=== PATIENT | female | born 1935 | race Caucasian/White ===

== ENCOUNTER → 2017-04-23 | Outpatient (CLI) | payer MEDICARE, MEDICAID ==
--- NOTE | 2017-04-23 12:50 | RADIOLOGY REPORT (SQ) ---
EXAM DESCRIPTION: CT ABD/PELVIS WITH IV ONLY COMPLETED DATE/TIME: 04/23/2017 12:12 pm REASON FOR STUDY: LOWER ABDOMINAL PAIN R10.30 LOWER ABDOMINAL PAIN, UNSPECIFIED COMPARISON: None. TECHNIQUE: CT scan of the abdomen and pelvis performed using helical scanning technique with dynamic intravenous contrast injection. No oral contrast. Images reviewed with lung, soft tissue, and bone windows. Reconstructed coronal and sagittal MPR images reviewed. Delayed images for evaluation of the urinary system also acquired. All images stored on PACS. All CT scanners at this facility use dose modulation, iterative reconstruction, and/or weight based d osing when appropriate to reduce radiation dose to as low as reasonably achievable (ALARA). [facility]: Dose Right [facility]: CareDose [facility]: Dose Right [facility]: Teradose 4D [facility]: [employer] CONTRAST TYPE AND DOSE: 78mL Isovue 370- low osmolar. RENAL FUNCTION: Creatinine 1.4. RADIATION DOSE: 14.31mGy. LIMITATIONS: None. FINDINGS: LOWER CHEST: No significant findings. No nodules or infiltrates. LIVER: Normal size. No masses or dilated ducts. SPLEEN: Normal size. No focal lesions. PANCREAS: No masses. No significant calcifications. No adjacent inflammation or peripancreatic fluid collections. Pancreatic duct not dilated. GALLBLADDER: Gallstones. No inflammatory changes to suggest cholecystitis. ADRENAL GLANDS: No significant masses or asymmetry. RIGHT KIDNEY AND URETER: No solid masses. No significant calcifications. No hydronephrosis or hyd roureter. LEFT KIDNEY AND URETER: No solid masses. No significant calcifications. No hydronephrosis or hydr oureter. AORTA AND VESSELS: Ectatic aorta with a saccular aneurysm in in the mid aorta, measuring 3.9 cm, and saccular aneurysm in the distal aorta, measuring 4.3 cm. Mural thrombus distally. No dissection. Nagi al arteries, SMA, celiac without stenosis. RETROPERITONEUM: No retroperitoneal adenopathy, hemorrhage or masses. BOWEL AND PERITONEAL CAVITY: Colonic diverticulosis. No masses or inflammatory changes. No free flui d or peritoneal masses. APPENDIX: Surgically absent. PELVIS: No mass or free fluid. Normal bladder. ABDOMINAL WALL: Surgical mesh. No hernias. BONES: No significant or acute findings. Degenerative changes in the spine. OTHER: No other significant finding. IMPRESSION: 1. GALLSTONES. NO ACUTE FINDINGS. 2. COLONIC DIVERTICULOSIS. NO CT EVIDENCE OF ACUTE DIVERTICULITIS. 3. ABDOMINAL AORTIC ANEURYSMS DESCRIBED 4. OTHER CHRONIC FINDINGS ABOVE. NO OTHER SIGNIFICANT OR ACUTE FINDING IN THE ABDOMEN OR PELVIS O N CT SCAN WITH IV CONTRAST. TECHNICAL DOCUMENTATION: JOB ID: [id number] Quality ID # [id number]: Final reports with documentation of one or more dose reduction techniques (e.g., Au tomated exposure control, adjustment of the mA and/or kV according to patient size, use of iterative reconstruction technique) 2010 [employer]- All Rights Reserved
== END ==
LOC: RAD 11:15
PROVIDERS: ATTEND Physician Assistant
DX: R10.30 Lower abdominal pain, unspecified (principal); R31.0 Gross hematuria; K80.80 Other cholelithiasis without obstruction; K57.30 Diverticulosis of large intestine without perforation or abscess without bleeding; I71.4 Abdominal aortic aneurysm, without rupture
CPT/HCPCS: 74177; 82565

== ENCOUNTER → 2018-03-23 | Outpatient (CLI) | payer MEDICARE, MEDICAID ==
[2018-03-23 17:09] LABS: ABSOLUTE EOSINOPHILS # (AUTO) 0.2 10^3/uL (0.0-0.6); ABSOLUTE LYMPHOCYTES (AUTO) 1.2 10^3/uL (0.5-4.7); ABSOLUTE MONOCYTES (AUTO) 0.3 10^3/uL (0.1-1.4); ABSOLUTE NEUT (AUTO) 3.8 10^3/uL (1.7-8.2); BASOPHILS % (AUTO) 0.9 % (0-2); EOSINOPHILS % (AUTO) 3.8 % (0-6); HEMATOCRIT 39.3 % (36.0-47.0); LYMPHOCYTES % (AUTO) 21.2 % (13-45); MEAN CORPUSCULAR HEMOGLOBIN 30.3 pg (27.0-33.4); MEAN CORPUSCULAR VOLUME 92 fl (80-97); MONOCYTES % (AUTO) 5.8 % (3-13); PLATELET COUNT 161 10^3/uL (150-450); RED BLOOD COUNT 4.28 10^6/uL (3.72-5.28); SEGMENTED NEUTROPHILS % (AUTO) 68.3 % (42-78); TOTAL CELLS COUNTED % (AUTO) 100 %; WHITE BLOOD COUNT 5.5 10^3/uL (4.0-10.5)
[2018-03-23 17:26] LABS: ALANINE AMINOTRANSFERASE 32 U/L (9-52); ALBUMIN 3.7 g/dL (3.5-5.0); ALKALINE PHOSPHATASE 85 U/L (38-126); ANION GAP 10 (5-19); ASPARTATE AMINO TRANSFERASE 33 U/L (14-36); BILIRUBIN,DIRECT 0.3 mg/dL (0.0-0.4); BILIRUBIN,TOTAL 0.4 mg/dL (0.2-1.3); BLOOD UREA NITROGEN 20 mg/dL (7-20); CALCIUM 9.4 mg/dL (8.4-10.2); CARBON DIOXIDE 30 mmol/L (22-30); CHLORIDE 102 mmol/L (98-107); GLUCOSE 96 mg/dL (75-110); LIPASE 240.8 U/L (23-300); POTASSIUM 5.1 mmol/L (3.6-5.0); SODIUM 142.2 mmol/L (137-145)
== END ==
LOC: LAB 16:39
PROVIDERS: ATTEND Physician Assistant
DX: R10.11 Right upper quadrant pain (principal); E03.9 Hypothyroidism, unspecified
CPT/HCPCS: 36415; 80053; 83690; 84443; 85025

== ENCOUNTER → 2018-03-23 | Outpatient (CLI) | payer MEDICARE, MEDICAID ==
--- NOTE | 2018-03-23 19:38 | RADIOLOGY REPORT (SQ) ---
EXAM DESCRIPTION: CT ABD/PELVIS WITH IV ORAL COMPLETED DATE/TIME: 03/23/2018 7:18 pm REASON FOR STUDY: R10.11 RIGHT UPPER QUADRANT PAIN K59.00 CONSTIPATION, UNSPECIFIED R10.11 RIGHT UP PER QUADRANT PAIN K59.00 CONSTIPATION, UNSPECIFIED COMPARISON: 2016 TECHNIQUE: CT scan of the abdomen and pelvis performed using helical scanning technique with dynamic intravenous contrast injection. With oral contrast. Images reviewed with lung, soft tissue, and bon e windows. Reconstructed coronal and sagittal MPR images reviewed. Delayed images for evaluation of t he urinary system also acquired. All images stored on PACS. All CT scanners at this facility use dose modulation, iterative reconstruction, and/or weight based d osing when appropriate to reduce radiation dose to as low as reasonably achievable (ALARA). [facility]: Dose Right [facility]: CareDose [facility]: Dose Right [facility]: Teradose 4D [facility]: Accion CONTRAST TYPE AND DOSE: contrast/concentration: Isovue 370.00 mg/ml; Total Contrast Delivered: 89.0 ml; Total Saline Delivered: 50.0 ml RENAL FUNCTION: Not recorded RADIATION DOSE: CT Rad equipment meets quality standard of care and radiation dose reduction techniq ues were employed. CTDIvol: 8.0 - 11.0 mGy. DLP: 1019 mGy-cm.. LIMITATIONS: None. FINDINGS: LOWER CHEST: 2 mm pulmonary nodule left base unchanged. LIVER: Normal size. No masses. No dilated ducts. SPLEEN: Normal size. No focal lesions. PANCREAS: No masses. No significant calcifications. No adjacent inflammation or peripancreatic fluid collections. Pancreatic duct not dilated. GALLBLADDER: Extensive gallstones. No pericholecystic fluid. ADRENAL GLANDS: No significant masses or asymmetry. RIGHT KIDNEY AND URETER: No solid masses. No significant calcifications. No hydronephrosis or hyd roureter. LEFT KIDNEY AND URETER: No solid masses. No significant calcifications. No hydronephrosis or hydr oureter. AORTA AND VESSELS: Extensive aortic ectasia with multi level aneurysms. There is a 2 part aneurysm b elow the renal arteries. The upper aneurysm now measures 4.1 x 4.4 cm which is slightly larger than previous. The lower part of the aneurysm with mural thrombus is stable. RETROPERITONEUM: No retroperitoneal adenopathy, hemorrhage or masses. BOWEL AND PERITONEAL CAVITY: No masses or inflammatory changes. No free fluid or peritoneal masses. Diverticulosis. No diverticulitis. APPENDIX: Not visualized. PELVIS: No mass. No free fluid. Normal bladder. ABDOMINAL WALL: No masses. No hernias. BONES: No significant or acute findings. OTHER: No other significant finding. 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 The upper part of this aneurysm has increased in size slightly since the previous study. No evidenc e for rupture. The lower portion aneurysm contains mural thrombus. Extensive gallstones. Diverticulosis without diverticulitis. TECHNICAL DOCUMENTATION: JOB ID: [id number] Quality ID # [id number]: Final reports with documentation of one or more dose reduction techniques (e.g., Au tomated exposure control, adjustment of the mA and/or kV according to patient size, use of iterative reconstruction technique) 2010 [employer]- All Rights Reserved Reading location - IP/workstation name: [email or web address]
== END ==
LOC: RAD 16:30
PROVIDERS: ATTEND Physician Assistant
DX: R10.11 Right upper quadrant pain (principal); K59.00 Constipation, unspecified
CPT/HCPCS: 74177

== ENCOUNTER → 2018-04-02 | Outpatient (CLI) | payer MEDICARE, MEDICAID ==
--- NOTE | 2018-04-02 11:41 | RADIOLOGY REPORT (SQ) ---
EXAM DESCRIPTION: U/S ABDOMEN LIMITED W/O DOP COMPLETED DATE/TIME: 04/02/2018 10:26 am REASON FOR STUDY: CALCULUS OF GALLBLADDER W/O CHOLECYSTITIS W/O OBSTRUCTION K80.20 CALCULUS OF GALL BLADDER W/O CHOLECYSTITIS W/O OBSTRUC R10.11 RIGHT UPPER QUADRANT PAIN COMPARISON: None. TECHNIQUE: Dynamic and static grayscale images acquired of the abdomen and recorded on PACS. Additio nal selected color Doppler and spectral images recorded. LIMITATIONS: None. FINDINGS: PANCREAS: No masses. Visualized pancreatic duct normal caliber. LIVER: No masses. Echotexture normal. LIVER VASCULATURE: Normal directional flow of the main portal vein and hepatic veins. GALLBLADDER: Gallstone(s). No pericholecystic fluid. No wall thickening. ULTRASOUND-DETECTED RUBALCAVA'S SIGN: Negative. INTRAHEPATIC DUCTS AND COMMON DUCT: CBD and intrahepatic ducts normal caliber. No filling defects. INFERIOR VENA CAVA: Normal flow. AORTA: 4.4 cm distal aortic aneurysm. RIGHT KIDNEY: Normal size. Normal echogenicity. No solid or suspicious masses. No hydronephros is. No calcifications. PERITONEAL AND RIGHT PLEURAL SPACE: No ascites or effusions. OTHER: No other significant findings. IMPRESSION: 1. Cholelithiasis. No evidence of acute cholecystitis. 2. Known 4.4 cm aortic aneurysm. TECHNICAL DOCUMENTATION: JOB ID: [id number] [employer]- All Rights Reserved Reading location - IP/workstation name: [email or web address]
== END ==
LOC: RAD 08:44
PROVIDERS: ATTEND Physician Assistant
DX: K80.20 Calculus of gallbladder without cholecystitis without obstruction (principal); R10.11 Right upper quadrant pain
CPT/HCPCS: 76705

== ENCOUNTER 2018-04-17 13:45 | Emergency (ER) | payer MEDICARE, MEDICAID ==
[2018-04-17] MEDS ORDERED: BENZONATATE 100 MG CAPSULE PO ONE (14:29)
--- NOTE | 2018-04-17 14:34 | ER Document Report ---
HPI - HPI Pain Level: 4 Notes: Patient is an 82-year-old female with a history of hypercholesterolemia, abdominal aortic aneurysm, and upcoming cholecystectomy in 2 weeks who presents to the ED complaining of a dry semi-productive cough 2 days with nasal congestion/discharge and postnasal drip. Patient states that she does have some soreness in her throat intermittently as well. Patient states that she still is able to eat and drink, but does have a decreased p.o. intake. She still urinating normally and having normal bowel movements. Patient states that she was instructed here by Dr. Gupta to have an x-ray and some blood work done for possible pneumonia. She has no other concerns or complaints at this time. No other significant cardiopulmonary medical history. Denies any headache, fever, neck pain, sore throat, chest pain, palpitations, syncope, shortness of breath, wheeze, dyspnea, abdominal pain, nausea/vomiting/diarrhea, urinary retention, dysuria, hematuria, or rash. - ROS Systems Reviewed and Negative: Yes All other systems reviewed and negative - REPRODUCTIVE Reproductive: DENIES: : Past Medical History - Social History Smoking Status: Former Smoker Family History: Reviewed & Not Pertinent - Past Medical History Cardiac Medical History: Reports: Hx Coronary Artery Disease, Hx Heart Attack - 2000, Hx Hypercholesterolemia, Hx Hypertension Pulmonary Medical History: Reports: Hx COPD - physician indicated early signs of copd Denies: Hx Asthma, Hx Bronchitis, Hx Pneumonia Neurological Medical History: Denies: Hx Cerebrovascular Accident, Hx Seizures Musculoskeltal Medical History: Reports Hx Arthritis Psychiatric Medical History: Reports: Hx Depression Past Surgical History: Reports: Hx Hysterectomy. Denies: Hx Pacemaker - Immunizations Hx Diphtheria, Pertussis, Tetanus Vaccination: Yes Hx Pneumococcal Vaccination: 11/24/08 Vertical Provider Document - CONSTITUTIONAL Agree With Documented VS: Yes Notes: PHYSICAL EXAMINATION: GENERAL: Well-appearing, well-nourished and in no acute distress. A&Ox4. Answers questions appropriately. HEAD: Atraumatic, normocephalic. EYES: Pupils equal round and reactive to light, extraocular movements intact, sclera anicteric, conjunctiva are normal. ENT: EAC clear b/l. TM's intact b/l without erythema, fluid, or perforation. Nares patent and with clear discharge. oropharynx clear without exudates. No tonsilar hypertrophy or erythema. Moist mucous membranes. No airway compromise. No sinus tenderness. NECK: Normal range of motion, supple without lymphadenopathy. no rigidity/ meningismus. LUNGS: Breath sounds clear to auscultation bilaterally and equal. No obvious wheezes rales or rhonchi. HEART: Regular rate and rhythm without murmurs, rubs, gallops. ABDOMEN: Soft, nontender, nondistended abdomen. No guarding, no rebound. No masses appreciated. Normal bowel sounds present. No CVA tenderness bilaterally. Musculoskeletal: FROM to passive/active. Strength 5+/5. Extremities: No cyanosis, clubbing, or edema b/l. Peripheral pulses 2+. Capillary refill less than 3 seconds. NEUROLOGICAL: Normal speech, normal gait. PSYCH: Normal mood, normal affect. SKIN: Warm, Dry, normal turgor, no rashes or lesions noted. - INFECTION CONTROL TRAVEL OUTSIDE OF THE [place] IN LAST 30 DAYS: No Course - Re-evaluation Re-evalutation: 04/17/18 16:18 Patient is an afebrile, well-hydrated, 82-year-old female who presents to the ED with an acute URI, suspect viral. Vitals are acceptable. PE is otherwise unremarkable. Patient has no significant tachycardia, tachypnea, or hypoxia. She is ambulatory without any difficulties. She is tolerating p.o. without any difficulties. CBC, CMP, and chest x-ray were unremarkable for any acute pathology. Patient is nontoxic-appearing and would like to go home. No other labs or imaging warranted at this time based on H&P. Low suspicion for any sepsis, meningitis, severe dehydration, respiratory compromise, or other systemic emergent condition at this time. Pt is aware that condition can change from initial presentation and she needs to monitor symptoms closely and seek medical attention with any acute changes. I will send her home with a pocket rx of zithromax that she may begin in 2-3 days with ongoing/worsening symptoms as she does have a surgery coming up soon and family wants an antibiotic. Advised that this illness is most likely viral and the antibiotic may not change her illness. Daughter/pt in agreement. Recheck with your PCM in 2-3 days. Return to the ED with any worsening/concerning symptoms otherwise as reviewed discharge. - Vital Signs Vital signs: Temp Pulse Resp BP Pulse Ox 98.7 F 69 22 H 141/68 H 100 04/17/18 13:50 04/17/18 13:50 04/17/18 13:50 04/17/18 13:50 04/17/18 13:50 - Laboratory Result Diagrams: 04/17/18 15:13 04/17/18 15:13 Discharge - Discharge Clinical Impression: Acute URI Condition: Stable Disposition: HOME, SELF-CARE Instructions: Upper Respiratory Illness ([facility]) Additional Instructions: Maintain adequate fluid intake Take meds as directed tylenol/ibuprofen as needed over the counter cold medication as needed for symptoms Humidified air may help Wash your hands regularly Wear a mask when coughing F/u: with your PCM in 2-3 days for a recheck Return to the ED with any fever, worsening pain, chest pain, palpitations, syncope, worsening LANIER, neck pain/stiffness, shortness of breath, wheezing, drooling, trouble swallowing/breathing, abdominal pain, n/v/d, rash, or worsening/concerning symptoms otherwise. Prescriptions: Azithromycin [Zithromax 250 mg Tablet] 250 mg PO ASDIR PRN #6 tablet PRN Reason: Forms: Elevated Blood Pressure Referrals: JOSÉ MIGUEL GUPTA MD [Primary Care Provider] - 04/20/18
--- NOTE | 2018-04-17 15:12 | RADIOLOGY REPORT (SQ) ---
EXAM DESCRIPTION: CHEST 2 VIEWS COMPLETED DATE/TIME: 04/17/2018 2:58 pm REASON FOR STUDY: cough, productive COMPARISON: None. EXAM PARAMETERS: NUMBER OF VIEWS: two views TECHNIQUE: Digital Frontal and Lateral radiographic views of the chest acquired. RADIATION DOSE: NA LIMITATIONS: none FINDINGS: LUNGS AND PLEURA: Mild apical scarring. No infiltrates, masses or pneumothorax. No pleura l effusion. MEDIASTINUM AND HILAR STRUCTURES: No masses or contour abnormalities. HEART AND VASCULAR STRUCTURES: Heart upper limits of normal size. No evidence for failure. BONES: No acute findings. HARDWARE: The aortic endograft. OTHER: No other significant finding. IMPRESSION: MILD APICAL SCARRING. NO ACUTE RADIOGRAPHIC FINDING IN THE CHEST. TECHNICAL DOCUMENTATION: JOB ID: [id number] [employer]- All Rights Reserved Reading location - IP/workstation name: [email or web address]
[2018-04-17 15:30] LABS: MEAN CORPUSCULAR HEMOGLOBIN 30.7 pg (27.0-33.4); MEAN CORPUSCULAR HGB CONC 33.2 g/dL (32.0-36.0); MEAN CORPUSCULAR VOLUME 93 fl (80-97); PLATELET COUNT 123 10^3/uL (150-450); RED BLOOD COUNT 4.22 10^6/uL (3.72-5.28); RED CELL DISTRIBUTION WIDTH 13.6 % (11.5-14.0); WHITE BLOOD COUNT 9.6 10^3/uL (4.0-10.5)
[2018-04-17 15:44] LABS: ALANINE AMINOTRANSFERASE 21 U/L (9-52); ALBUMIN 3.5 g/dL (3.5-5.0); ALKALINE PHOSPHATASE 94 U/L (38-126); ANION GAP 8 (5-19); ASPARTATE AMINO TRANSFERASE 21 U/L (14-36); BILIRUBIN,DIRECT 0.3 mg/dL (0.0-0.4); BILIRUBIN,TOTAL 0.6 mg/dL (0.2-1.3); BLOOD UREA NITROGEN 14 mg/dL (7-20); CALCIUM 9.2 mg/dL (8.4-10.2); CARBON DIOXIDE 28 mmol/L (22-30); CHLORIDE 103 mmol/L (98-107); GLUCOSE 116 mg/dL (75-110); POTASSIUM 3.6 mmol/L (3.6-5.0); SODIUM 139.4 mmol/L (137-145); TOTAL PROTEIN 6.9 g/dL (6.3-8.2)
[2018-04-17 15:48] LABS: ABSOLUTE LYMPHOCYTES# (MANUAL) 0.5 10^3/uL (0.5-4.7); ABSOLUTE MONOCYTES # (MANUAL) 0.8 10^3/uL (0.1-1.4); ABSOLUTE NEUTROPHILS# (MANUAL) 8.3 10^3/uL (1.7-8.2); BASOPHILS % (MANUAL) 0 % (0-2); EOSINOPHILS % (MANUAL) 1 % (0-6); LYMPHOCYTES % (MANUAL) 5 % (13-45); MONOCYTES % (MANUAL) 8 % (3-13); SEGMENTED NEUTROPHILS % (MAN) 86 % (42-78); TOTAL CELLS COUNTED 100
[2018-04-17 15:49] LABS: PLATELET COMMENT DECREASED; TOXIC GRANULATION SLIGHT
[2018-04-17 16:35] VITALS: BP 161/78
== END 2018-04-17 16:36 | disposition home or self-care (01) ==
LOC: ER 13:45
DX: J06.9 Acute upper respiratory infection, unspecified (principal); R09.81 Nasal congestion; E78.00 Pure hypercholesterolemia, unspecified; I25.10 Atherosclerotic heart disease of native coronary artery without angina pectoris; I71.4 Abdominal aortic aneurysm, without rupture; I25.2 Old myocardial infarction
CPT/HCPCS: 99284; 36415; 85025; 80053; 71046; A9270

== ENCOUNTER 2018-04-21 19:14 | Inpatient (IN) | payer MEDICARE, MEDICAID ==
[2018-04-21] MEDS ORDERED: IPRATROPIUM/ALBUTEROL 0.5-2.5 MG/3 ML AMPUL NEB ONE (20:09)
[2018-04-21] MEDS ORDERED: NORMAL SALINE 500 ML IV ONE (20:23)
[2018-04-21 20:43] LABS: VENOUS BLOOD BASE EXCESS 2.2 mmol/L; VENOUS BLOOD HCO3 26.9 mmol/L (20-32); VENOUS BLOOD PH 7.42 (7.30-7.42)
--- NOTE | 2018-04-21 20:43 | RADIOLOGY REPORT (SQ) ---
EXAM DESCRIPTION: CHEST 2 VIEWS COMPLETED DATE/TIME: 04/21/2018 7:51 pm REASON FOR STUDY: cough fever COMPARISON: 04/17/2018 EXAM PARAMETERS: NUMBER OF VIEWS: two views TECHNIQUE: Digital Frontal and Lateral radiographic views of the chest acquired. RADIATION DOSE: NA LIMITATIONS: none FINDINGS: LUNGS AND PLEURA: No opacities, masses or pneumothorax. No pleural effusion. MEDIASTINUM AND HILAR STRUCTURES: No masses or contour abnormalities. HEART AND VASCULAR STRUCTURES: Heart normal size. No evidence for failure. BONES: No acute findings. HARDWARE: Aortic stent OTHER: No other significant finding. IMPRESSION: NO ACUTE RADIOGRAPHIC FINDING IN THE CHEST. TECHNICAL DOCUMENTATION: JOB ID: [id number] [employer]- All Rights Reserved Reading location - IP/workstation name: [email or web address]
[2018-04-21 20:45] LABS: HEMATOCRIT 40.1 % (36.0-47.0); HEMOGLOBIN 13.2 g/dL (12.0-15.5); MEAN CORPUSCULAR HEMOGLOBIN 30.1 pg (27.0-33.4); MEAN CORPUSCULAR HGB CONC 32.9 g/dL (32.0-36.0); MEAN CORPUSCULAR VOLUME 92 fl (80-97); PLATELET COUNT 172 10^3/uL (150-450); RED BLOOD COUNT 4.38 10^6/uL (3.72-5.28); RED CELL DISTRIBUTION WIDTH 13.6 % (11.5-14.0); WHITE BLOOD COUNT 6.1 10^3/uL (4.0-10.5)
[2018-04-21 20:53] LABS: PROTHROMBIN TIME 13.7 SEC (11.4-15.4)
[2018-04-21 21:05] LABS: ALANINE AMINOTRANSFERASE 21 U/L (9-52); ALBUMIN 3.1 g/dL (3.5-5.0); ALKALINE PHOSPHATASE 114 U/L (38-126); ANION GAP 12 (5-19); ASPARTATE AMINO TRANSFERASE 16 U/L (14-36); BILIRUBIN,DIRECT 0.6 mg/dL (0.0-0.4); BILIRUBIN,TOTAL 1.1 mg/dL (0.2-1.3); BLOOD UREA NITROGEN 15 mg/dL (7-20); CALCIUM 8.7 mg/dL (8.4-10.2); CARBON DIOXIDE 26 mmol/L (22-30); CHLORIDE 96 mmol/L (98-107); GLUCOSE 123 mg/dL (75-110); POTASSIUM 4.3 mmol/L (3.6-5.0); TOTAL PROTEIN 6.4 g/dL (6.3-8.2)
[2018-04-21 21:17] LABS: ABSOLUTE LYMPHOCYTES# (MANUAL) 0.6 10^3/uL (0.5-4.7); ABSOLUTE MONOCYTES # (MANUAL) 0.7 10^3/uL (0.1-1.4); ABSOLUTE NEUTROPHILS# (MANUAL) 4.7 10^3/uL (1.7-8.2); BAND NEUTROPHILS % (MANUAL) 3 % (3-5); BASOPHILS % (MANUAL) 1 % (0-2); EOSINOPHILS % (MANUAL) 0 % (0-6); HYPOCHROMASIA SLIGHT; LYMPHOCYTES % (MANUAL) 10 % (13-45); MONOCYTES % (MANUAL) 12 % (3-13); PLATELET COMMENT ADEQUATE; POLYCHROMASIA SLIGHT; SEGMENTED NEUTROPHILS % (MAN) 74 % (42-78); TOTAL CELLS COUNTED 100; TOXIC GRANULATION SLIGHT; TOXIC VACUOLATION PRESENT
[2018-04-21 22:37] LABS: APPEARANCE,URINE CLEAR; BILIRUBIN,URINE NEGATIVE (NEGATIVE); COLOR,URINE YELLOW; GLUCOSE, URINE NEGATIVE (NEGATIVE); KETONES,URINE 20 mg/dL (NEGATIVE); LEUKOCYTE ESTERASE,URINE NEGATIVE (NEGATIVE); NITRITE,URINE NEGATIVE (NEGATIVE); PROTEIN,URINE 30 mg/dL (NEGATIVE); URINE SPECIFIC GRAVITY 1.008
[2018-04-21] MEDS ORDERED: LEVOFLOXACIN 500 MG/D5W RTU 500 MG/100 ML RTUPB IV ONE (22:54)
--- NOTE | 2018-04-21 22:57 | ER Document Report ---
ED General - General Chief Complaint: Cough Stated Complaint: COUGH Time Seen by Provider: 04/21/18 19:32 TRAVEL OUTSIDE OF THE [place] IN LAST 30 DAYS: No - HPI Patient complains to provider of: Cough short of breath Notes: Patient coming in for evaluation of cough and shortness of breath. Patient was recently seen diagnosed with URI started on amoxicillin. Patient continues with yellow sputum and otherwise short of breath coughing feeling unwell. Family at bedside states patient's mental status also changed. Patient otherwise is alert moving all 4 extremities following commands upon my evaluation patient does not look to be in any distress however is slightly hypoxic with SPO2 reading a 87 on room air. Patient placed on nasal cannula 2 L with improvement of her oxygenation. - Related Data Allergies/Adverse Reactions: cephalexin monohydrate [From Keflex] Allergy (Unknown, Verified 04/17/18 13:46) ramipril [From Altace] Allergy (Verified 04/17/18 13:46) Sulfa (Sulfonamide Antibiotics) Allergy (Verified 04/17/18 13:46) Past Medical History - Social History Smoking Status: Unknown if Ever Smoked Family History: Reviewed & Not Pertinent Patient has suicidal ideation: No Patient has homicidal ideation: No - Past Medical History Cardiac Medical History: Reports: Hx Coronary Artery Disease, Hx Heart Attack - 2000, Hx Hypercholesterolemia, Hx Hypertension Pulmonary Medical History: Reports: Hx COPD - physician indicated early signs of copd Denies: Hx Asthma, Hx Bronchitis, Hx Pneumonia Neurological Medical History: Denies: Hx Cerebrovascular Accident, Hx Seizures Renal/ Medical History: Denies: Hx Peritoneal Dialysis Musculoskeltal Medical History: Reports Hx Arthritis Psychiatric Medical History: Reports: Hx Depression Past Surgical History: Reports: Hx Hysterectomy. Denies: Hx Pacemaker - Immunizations Hx Diphtheria, Pertussis, Tetanus Vaccination: Yes Hx Pneumococcal Vaccination: 11/24/08 Review of Systems - Review of Systems Notes: Change in mental status -: Yes ROS unobtainable due to patient's medical condition Physical Exam - Vital signs Vitals: BP Pulse Ox 140/83 H 88 L 04/21/18 19:26 04/21/18 19:26 Interpretation: Hypoxic - General General appearance: Appears well, Alert - HEENT Head: Normocephalic, Atraumatic Eyes: Normal Pupils: PERRL - Respiratory Respiratory status: No respiratory distress Chest status: Nontender Breath sounds: Rhonchi - Rhonchi in the right upper lobe Chest palpation: Normal - Cardiovascular Rhythm: Regular Heart sounds: Normal auscultation Murmur: No - Abdominal Inspection: Normal Distension: No distension Bowel sounds: Normal Tenderness: Nontender Organomegaly: No organomegaly - Back Back: Normal, Nontender - Extremities General upper extremity: Normal inspection, Nontender, Normal color, Normal ROM , Normal temperature General lower extremity: Normal inspection, Nontender, Normal color, Normal ROM , Normal temperature, Normal weight bearing. No: Albertina's sign - Neurological Neuro grossly intact: Yes Cognition: Normal Orientation: AAOx4 [place] Coma Scale Eye Opening: Spontaneous [place] Coma Scale Verbal: Oriented Fransisca Coma Scale Motor: Obeys Commands [place] Coma Scale Total: 15 Speech: Normal Motor strength normal: LUE, RUE, LLE, RLE Sensory: Normal - Psychological Associated symptoms: Normal affect, Normal mood - Skin Skin Temperature: Warm Skin Moisture: Dry Skin Color: Normal Course - Re-evaluation Re-evalutation: 04/22/18 03:07 Patient's initial chest x-ray was read normal by radiologist however patient's lung sounds are coarse on the right knee do think there is an upper lobe pneumonia developing with sputum production and hypoxia therefore we will start patient on Levaquin and admit the patient to the PCP I did inform Dr. Sinha who agrees with admission at this time - Vital Signs Vital signs: Temp Pulse Resp BP Pulse Ox 100.1 F 88 20 134/80 H 95 04/21/18 19:34 04/21/18 19:34 04/22/18 01:00 04/22/18 01:00 04/22/18 01:00 - Laboratory Result Diagrams: 04/21/18 20:24 04/21/18 20:24 Laboratory results interpreted by me: 04/21/18 04/21/18 04/21/18 20:24 20:24 20:24 Lymphocytes % (Manual) 10 L Sodium 134.0 L Chloride 96 L Est GFR (Non-Af Amer) 55 L Glucose 123 H Direct Bilirubin 0.6 H Albumin 3.1 L Lipase 622.7 H Urine Protein Urine Ketones Urine Blood Urine Urobilinogen 04/21/18 22:23 Lymphocytes % (Manual) Sodium Chloride Est GFR (Non-Af Amer) Glucose Direct Bilirubin Albumin Lipase Urine Protein 30 H Urine Ketones 20 H Urine Blood LARGE H Urine Urobilinogen 4.0 H Discharge - Discharge Clinical Impression: COPD exacerbation, Hypoxemia requiring supplemental oxygen Pneumonia Qualifiers: Pneumonia type: due to unspecified organism Laterality: right Lung location: upper lobe of lung Qualified Code(s): J18.1 - Lobar pneumonia, unspecified organism Condition: Good Disposition: ADMITTED OBSERVATION Admitting Provider: Sinha Unit Admitted: Telemetry
[2018-04-21] MEDS ORDERED: NORMAL SALINE 1000 ML 1,000 ML IV ONE (22:58)
--- NOTE | 2018-04-21 23:38 | EKG REPORT ---
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
--- NOTE | 2018-04-22 01:06 | RADIOLOGY REPORT (SQ) ---
EXAM DESCRIPTION: CT CHEST WITHOUT CONTRAST CLINICAL HISTORY: hypoxia COMPARISON: None Available. TECHNIQUE: Axial CT images of the chest without IV contrast from the thoracic inlet through the diaphragm. Coronal and sagittal reformatted images available. DLP: 332.79 mGy-cm FINDINGS: Chest: Thyroid:No abnormalities of the visualized thyroid. Great Vessels:Great vessels have normal anatomic configuration. 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 There is stent graft involving the aortic arch and proximal descending aorta. Peripherally calcified structure arising at the level of the aortic arch may well represent a walled off pseudoaneurysm however evaluation for this is suboptimal due to lack of IV contrast. Pulmonary arteries: Dilation of the main pulmonary artery could be seen with pulmonary arterial hypertension. Heart: Coronary artery atherosclerosis. No significant pericardial effusion or cardiomegaly. Lymph Nodes:No enlarged mediastinal lymph nodes identified. Esophagus:No abnormalities of the esophagus identified Other:No additional findings. Lungs: Patchy bilateral groundglass opacities involving the superior segment of the right lower lobe as well as the posterior basilar segment of the left lower lobe. There are also scattered groundglass opacities involving the lower lobes and right upper lobe. There are 2 indeterminate solid pulmonary nodules involving the left lower lobe, the largest measuring 0.8 cm best seen on image #49, series 4. Pleura:No pleural effusion or pneumothorax. Trachea/Airways: Senile calcification of the trachea with mild bronchial wall thickening bilaterally. Bones: Degenerative change of the spine. Upper Abdomen:Limited images of the upper abdomen demonstrate no definite abnormalities of visualized portions of the liver, gallbladder, pancreas, spleen, adrenal glands, or kidneys. IMPRESSION: 1. Patchy groundglass opacities involving the right lower and left lower lobes concerning for developing pneumonic process. 2. Scattered tree-in-bud opacification identified bilaterally suggesting inflammatory or infectious bronchiolitis. 3. Mild bronchial wall thickening. This suggests chronic bronchitis however superimposed acute bronchitis could produce a similar appearance. 4. There are 2 solid indeterminate pulmonary nodules in the right lower lobe, the largest measuring 8 mm. Based on Fleischner criteria guidelines for high-risk patient follow-up CT of the chest in 6 months recommended. 5. Coronary artery atherosclerosis. 6. Stent graft treatment of the thoracic aortic arch. Ectasia of the ascending thoracic aorta. Continued surveillance in 6 months recommended as well as continued follow-up with vascular specialist. This exam was performed according to our departmental dose-optimization program, which includes automated exposure control, adjustment of the mA and/or kV according to patient size and/or use of iterative reconstruction technique.
[2018-04-22] MEDS ORDERED: BENZOCAINE/MENTHOL SORE THROAT LOZENGE BUCCAL PRN (06:15)
[2018-04-22] MEDS ORDERED: GUAIFENESIN SYRP 200 MG/10 ML UDC PO PRN (07:51)
[2018-04-22] MEDS: IPRATROPIUM/ALBUTEROL 0.5-2.5 MG/3 ML AMPUL NEB SCH ×3 (08:34→21:45)
--- NOTE | 2018-04-22 08:45 | PDOC H&P ---
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 Cough congestion's and patient was diagnosed with the upper respiratory tract infection and started on amoxicillin patients came to the EMS today with the complaint of shortness of the breath and not feeling well and increasing the cough and a fever Patient's initial workup in the ER with the normal white count and chest x-ray is normal but the patient's clinical condition is more worse than the last time seen in Friday according to the ER physicians and order the CT of the chest was consistent with the possible pneumonia with patient have pulmonary nodules in the aneurysms which is not change Since was giving the Levaquin dose I saw the patient Patient still complaining of a cough and congestion's due to the cough patient was complaining some abdominal wall pain but patient's denied any nausea no vomiting patient's denied any chest pain denied any shortness of the breath now Patient also have a diagnosed with a gallstone and seen by the [facility] and scheduled for the preop this week At this point patient only complaint today is the cough Patient otherwise alert awake oriented 4 Past Medical History Cardiac Medical History: Reports: Coronary Artery Disease, DVT, Myocardial Infarction - 2000, Hyperlipidema, Hypertension Pulmonary Medical History: Reports: Chronic Obstructive Pulmonary Disease (COPD ) - physician indicated early signs of copd Denies: Asthma, Bronchitis, Pneumonia Neurological Medical History: Denies: Seizures GI Medical History: Reports: Gastroesophageal Reflux Disease Musculoskeltal Medical History: Reports: Arthritis Psychiatric Medical History: Reports: Depression Hematology: Denies: Anemia Past Surgical History Past Surgical History: Reports: Coronary Stent, Herniorrhaphy, Hysterectomy Denies: Pacemaker Social History Information Source: Patient Lives with: Family Smoking Status: Former Smoker Frequency of Alcohol Use: None Hx Recreational Drug Use: No Hx Prescription Drug Abuse: No Family History Family History: Reviewed & Not Pertinent Parental Family History Reviewed: Yes Children Family History Reviewed: Yes Sibling(s) Family History Reviewed.: Yes Medication/Allergy Home Medications: Azithromycin [Zithromax 250 mg Tablet] 250 mg PO ASDIR PRN #6 tablet 04/17/18 Allergies/Adverse Reactions: cephalexin monohydrate [From Keflex] Allergy (Unknown, Verified 04/17/18 13:46) ramipril [From Altace] Allergy (Verified 04/17/18 13:46) Sulfa (Sulfonamide Antibiotics) Allergy (Verified 04/17/18 13:46) Review of Systems Constitutional: PRESENT: chills, fever(s), weakness. ABSENT: headache(s), weight gain, weight loss Eyes: ABSENT: visual disturbances Ears: ABSENT: hearing changes Cardiovascular: ABSENT: chest pain, dyspnea on exertion, edema, orthropnea, palpitations Respiratory: PRESENT: cough, dyspnea. ABSENT: hemoptysis Gastrointestinal: ABSENT: abdominal pain, constipation, diarrhea, hematemesis, hematochezia, nausea, vomiting Genitourinary: ABSENT: dysuria, hematuria Musculoskeletal: ABSENT: joint swelling Integumentary: ABSENT: rash, wounds Neurological: ABSENT: abnormal gait, abnormal speech, confusion, dizziness, focal weakness, syncope Psychiatric: ABSENT: anxiety, depression, homidical ideation, suicidal ideation Endocrine: ABSENT: cold intolerance, heat intolerance, menstrual abnormalities, polydipsia, polyuria Hematologic/Lymphatic: ABSENT: easy bleeding, easy bruising, lymphadenopathy Physical Exam Vital Signs: Temp Pulse Resp BP Pulse Ox 98.9 F 76 16 135/58 H 94 04/22/18 03:51 04/22/18 03:51 04/22/18 03:51 04/22/18 03:51 04/22/18 03:51 Intake & Output 04/21/18 04/22/18 04/23/18 06:59 06:59 06:59 Intake Total 0 Balance 0 Weight 68.5 kg General appearance: PRESENT: no acute distress, well-developed, well-nourished Head exam: PRESENT: atraumatic, normocephalic Eye exam: PRESENT: conjunctiva pink, EOMI, PERRLA. ABSENT: scleral icterus Ear exam: PRESENT: normal external ear exam Mouth exam: PRESENT: moist, tongue midline Neck exam: PRESENT: full ROM. ABSENT: carotid bruit, JVD, lymphadenopathy, thyromegaly Respiratory exam: PRESENT: decreased breath sounds Cardiovascular exam: PRESENT: RRR. ABSENT: diastolic murmur, rubs, systolic murmur Pulses: PRESENT: normal dorsalis pedis pul, +2 pedal pulses bilateral Vascular exam: PRESENT: normal capillary refill GI/Abdominal exam: PRESENT: normal bowel sounds, soft. ABSENT: distended, guarding, mass, organolmegaly, rebound, tenderness Rectal exam: PRESENT: deferred Extremities exam: ABSENT: pedal edema Neurological exam: PRESENT: alert, awake, oriented to person, oriented to place , oriented to time, oriented to situation, CN II-XII grossly intact. ABSENT: motor sensory deficit Psychiatric exam: PRESENT: appropriate affect, normal mood. ABSENT: homicidal ideation, suicidal ideation Skin exam: PRESENT: dry, intact, warm. ABSENT: cyanosis, rash Results Impressions: Chest X-Ray 04/21/18 19:36 IMPRESSION: NO ACUTE RADIOGRAPHIC FINDING IN THE CHEST. Chest CT 04/21/18 22:57 IMPRESSION: 1. Patchy groundglass opacities involving the right lower and left lower lobes concerning for developing pneumonic process. 2. Scattered tree-in-bud opacification identified bilaterally suggesting inflammatory or infectious bronchiolitis. 3. Mild bronchial wall thickening. This suggests chronic bronchitis however superimposed acute bronchitis could produce a similar appearance. 4. There are 2 solid indeterminate pulmonary nodules in the right lower lobe, the largest measuring 8 mm. Based on Fleischner criteria guidelines for high-risk patient follow-up CT of the chest in 6 months recommended. 5. Coronary artery atherosclerosis. 6. Stent graft treatment of the thoracic aortic arch. Ectasia of the ascending thoracic aorta. Continued surveillance in 6 months recommended as well as continued follow-up with vascular specialist. This exam was performed according to our departmental dose-optimization program, which includes automated exposure control, adjustment of the mA and/or kV according to patient size and/or use of iterative reconstruction technique. Assessment & Plan - Diagnosis (1) Pneumonia Qualifiers: Pneumonia type: due to unspecified organism Laterality: right Lung location: upper lobe of lung Qualified Code(s): J18.1 - Lobar pneumonia, unspecified organism Is this a current diagnosis for this admission?: Yes Plan: Start the patient on Levaquin already we added the Unasyn IV while patient already took the amoxicillin (2) COPD exacerbation Is this a current diagnosis for this admission?: Yes Plan: Continues to DuoNeb nebulizer treatments consult the Dr. Marcial's with the abnormal CT scan (3) Coronary artery disease Qualifiers: Coronary Disease-Associated Artery/Lesion type: [place] artery [place] vs. transplanted heart: [place] heart Associated angina: without angina Qualified Code(s): I25.10 - Atherosclerotic heart disease of [place] coronary artery without angina pectoris Is this a current diagnosis for this admission?: Yes Plan: Patients were continues to monitor (4) Hypertension Qualifiers: Hypertension type: essential hypertension Qualified Code(s): I10 - Essential (primary) hypertension Is this a current diagnosis for this admission?: Yes Plan: Currently stable (5) Abdominal aortic aneurysm Qualifiers: Presence of rupture: without rupture Qualified Code(s): I71.4 - Abdominal aortic aneurysm, without rupture Is this a current diagnosis for this admission?: Yes Plan: Will get the CT abdomen and pelvis to rule out other etiology (6) Gallstone Qualifiers: Cholecystitis presence: without cholecystitis Is this a current diagnosis for this admission?: Yes Plan: Patient scheduled for the surgery if the patient's remain stable with a consult the surgeon (7) Hypothyroidism Qualifiers: Hypothyroidism type: unspecified Qualified Code(s): E03.9 - Hypothyroidism , unspecified Is this a current diagnosis for this admission?: Yes Plan: Currently all stable (8) Depression Qualifiers: Depression Type: major depressive disorder Is this a current diagnosis for this admission?: Yes (9) Pulmonary nodule Is this a current diagnosis for this admission?: Yes Plan: Consult the pulmonary - Time Time Spent: 30 to 50 Minutes Medications reviewed and adjusted accordingly: Yes Anticipated discharge: Home Within: Other - Inpatient Certification Medical Necessity: Need Close Monitoring Due to Risk of Patient Decompensation, Need For IV Fluids, Need for IV Antibiotics Post Hospital Care: D/C Wind Turbine Service Technician Documentation - Plan Summary Plan Summary: See other MD orders discussed with the nursing staff discussed with the daughter to inform regarding the patient's current conditions
--- NOTE | 2018-04-22 10:28 | RADIOLOGY REPORT (SQ) ---
EXAM DESCRIPTION: CT ABD/PELVIS NO ORAL OR IV COMPLETED DATE/TIME: 04/22/2018 9:18 am REASON FOR STUDY: abd anurysem R50.81 FEVER PRESENTING WITH CONDITIONS CLASSIFIED ELSEWHERE COMPARISON: CT abdomen pelvis 04/23/2017, 03/23/2018 Abdominal ultrasound 04/02/2018 CT chest 04/22/2018 TECHNIQUE: CT scan of the abdomen and pelvis performed without intravenous or oral contrast. Images reviewed with lung, soft tissue, and bone windows. Reconstructed coronal and sagittal MPR images revi ewed. All images stored on PACS. All CT scanners at this facility use dose modulation, iterative reconstruction, and/or weight based d osing when appropriate to reduce radiation dose to as low as reasonably achievable (ALARA). [facility]: Dose Right [facility]: CareDose [facility]: Dose Right [facility]: Teradose 4D [facility]: Smart MightyQuiz RADIATION DOSE: CT Rad equipment meets quality standard of care and radiation dose reduction techniq ues were employed. CTDIvol: 7.0 mGy. DLP: 361 mGy-cm.mGy. LIMITATIONS: None. FINDINGS: NON-CONTRASTED LIVER, SPLEEN, ADRENALS: Evaluation limited by lack of IV contrast. No iden tified significant masses. PANCREAS: No masses. No peripancreatic inflammatory changes. GALLBLADDER: Gallstones. No inflammatory changes to suggest cholecystitis. RIGHT KIDNEY AND URETER: No suspicious masses. Assessment limited by lack of IV contrast. No signif icant calcifications. No hydronephrosis or hydroureter. LEFT KIDNEY AND URETER: No suspicious masses. Assessment limited by lack of IV contrast. No signifi cant calcifications. No hydronephrosis or hydroureter. AORTA AND RETROPERITONEUM: Infrarenal abdominal aorta measures 4.5 x 4.4 cm in greatest diameter on a xial image 35. Common iliac arteries are non aneurysmal. BOWEL AND PERITONEAL CAVITY: No CT evidence of bowel obstruction. Colonic diverticuli without CT sig ns of acute diverticulitis. No obvious masses or inflammatory changes. No free fluid. APPENDIX: Not identified. PELVIS, BLADDER, AND ABDOMINAL WALL:No abnormal masses. No free fluid. Bladder normal. Post hysterec manisha. Intact umbilical hernia repair. BONES: No significant findings. OTHER: No other significant finding. IMPRESSION: Unruptured infrarenal abdominal aortic aneurysm, 4.5 x 4.4 cm in size. Stones in the gallbladder. COMMENT: Quality ID # [id number]: Final reports with documentation of one or more dose reduction techniques (e.g., Automated exposure control, adjustment of the mA and/or kV according to patient size, use of iterative reconstruction technique) TECHNICAL DOCUMENTATION: JOB ID: [id number] [employer]- All Rights Reserved Reading location - IP/workstation name: [facility]
--- NOTE | 2018-04-22 11:38 | PDOC CONSULTATION ---
Consultation Consult Date: 04/22/18 Attending physician:: JOSÉ MIGUEL GUPTA Consult reason:: Exacerbation COPD History of Present Illness Admission Date/PCP: 04/21/18 23:22 JOSÉ MIGUEL GUPTA MD History of Present Illness: JUNO KERR is a 82 year old female,presented to ED complaining of cough and shortness of breath has not smoked in the last 10 years but it is smoked a pack a day for approximately 60 years. She denies hemoptysis her PPD status is unknown she has no history chronic lung disease as a child or adolescent. She admits to exposure to passive smoke as a child as well as an adult. 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 She has no pets no recent travel she still has a history of myocardial infarction but denies any current chest pain sleeps on one pillow no PND occasional nocturnal cough and no edema she is unaware of any snoring she denies restless sleep she does admit to nocturia 3-4 times per night she denies unrestful sleep or excessive daytime somnolence. 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 Pulmonary Medical History: Reports: Chronic Obstructive Pulmonary Disease (COPD ) - physician indicated early signs of copd Denies: Asthma, Bronchitis, Pneumonia Neurological Medical History: Denies: Seizures Renal/ Medical History: Denies: End Stage Renal Disease Malignancy Medical History: Reports: Skin Cancer GI Medical History: Reports: Gastroesophageal Reflux Disease Denies: Crohn's Disease, Ulcerative Colitis Musculoskeltal Medical History: Reports: Arthritis Skin Medical History: Denies: Eczema, Psoriasis Psychiatric Medical History: Reports: Depression Traumatic Medical History: Denies: Pneumothorax, Traumatic Brain Injury Hematology: Denies: Anemia, Sickle Cell Disease Infectious Medical History: Denies: Clostridium Difficile Past Surgical History Past Surgical History: Reports: Coronary Stent, Herniorrhaphy, Hysterectomy Denies: Pacemaker Social History Lives with: Family Smoking Status: Former Smoker Frequency of Alcohol Use: None Hx Recreational Drug Use: No Hx Prescription Drug Abuse: No Family History Family History: Reviewed & Not Pertinent Medication/Allergy Home Medications: Alendronate Sodium [Fosamax Inchweekly Inch 35 Mg Tablet] 35 mg PO ARNOLD 04/22/18 Aspirin [Aspirin EC] 81 mg PO DAILY 04/22/18 Atorvastatin Calcium [Lipitor 80 mg Tablet] 80 mg PO QHS 04/22/18 Citalopram Hydrobromide [Celexa 20 mg Tablet] 20 mg PO DAILY 04/22/18 Docusate Sodium [Stool Softener] 100 mg PO DAILYP PRN 04/22/18 Latanoprost [Xalatan 0.005% Oph Soln 2.5 ml] 1 drop OU QHS 04/22/18 Levothyroxine Sodium [Synthroid 0.075 mg Tablet] 0.075 mg PO QAM 04/22/18 Tramadol HCl [Ultram 50 mg Tablet] 50 mg PO BIDP PRN 04/22/18 Zolpidem Tartrate [Ambien 5 mg Tablet] 5 mg PO QPM 04/22/18 Allergies/Adverse Reactions: cephalexin monohydrate [From Keflex] Allergy (Unknown, Verified 04/17/18 13:46) ramipril [From Altace] Allergy (Verified 04/17/18 13:46) Sulfa (Sulfonamide Antibiotics) Allergy (Verified 04/17/18 13:46) Physical Exam Vital Signs: Temp Pulse Resp BP Pulse Ox 98.9 F 78 18 135/58 H 96 04/22/18 03:51 04/22/18 08:44 04/22/18 08:44 04/22/18 03:51 04/22/18 08:44 Intake & Output 04/21/18 04/22/18 04/23/18 06:59 06:59 06:59 Intake Total 0 Balance 0 Weight 68.5 kg General appearance: PRESENT: cooperative, disheveled, hard of hearing, mild distress, thin Head exam: PRESENT: atraumatic, normocephalic Eye exam: PRESENT: conjunctiva pale, EOMI, PERRLA. ABSENT: nystagmus, periorbital swelling, scleral icterus Mouth exam: PRESENT: dry mucosa, neck supple, tongue midline Neck exam: ABSENT: carotid bruit, JVD, lymphadenopathy, thyromegaly, tracheal deviation, tracheostomy Respiratory exam: PRESENT: decreased breath sounds, prolonged expiratory phas, rales, rhonchi, unlabored, wheezes. ABSENT: retraction, stridor, symmetrical, tachypnea Cardiovascular exam: PRESENT: RRR, +S1, +S2 Pulses: PRESENT: normal radial pulses GI/Abdominal exam: PRESENT: normal bowel sounds, soft, tenderness - Left lower quadrant Gentrourinary exam: ABSENT: ecchymosis Extremities exam: ABSENT: calf tenderness, clubbing, joint swelling Musculoskeletal exam: ABSENT: deformity, dislocation Neurological exam: PRESENT: alert, awake Psychiatric exam: PRESENT: normal mood Skin exam: PRESENT: dry, warm Results Impressions: Chest X-Ray 04/21/18 19:36 IMPRESSION: NO ACUTE RADIOGRAPHIC FINDING IN THE CHEST. Chest CT 04/21/18 22:57 IMPRESSION: 1. Patchy groundglass opacities involving the right lower and left lower lobes concerning for developing pneumonic process. 2. Scattered tree-in-bud opacification identified bilaterally suggesting inflammatory or infectious bronchiolitis. 3. Mild bronchial wall thickening. This suggests chronic bronchitis however superimposed acute bronchitis could produce a similar appearance. 4. There are 2 solid indeterminate pulmonary nodules in the right lower lobe, the largest measuring 8 mm. Based on Fleischner criteria guidelines for high-risk patient follow-up CT of the chest in 6 months recommended. 5. Coronary artery atherosclerosis. 6. Stent graft treatment of the thoracic aortic arch. Ectasia of the ascending thoracic aorta. Continued surveillance in 6 months recommended as well as continued follow-up with vascular specialist. This exam was performed according to our departmental dose-optimization program, which includes automated exposure control, adjustment of the mA and/or kV according to patient size and/or use of iterative reconstruction technique. Abdomen/Pelvis CT 04/22/18 00:00 IMPRESSION: Unruptured infrarenal abdominal aortic aneurysm, 4.5 x 4.4 cm in size. Stones in the gallbladder. Assessment & Plan - Diagnosis (1) Abdominal aortic aneurysm Qualifiers: Presence of rupture: without rupture Qualified Code(s): I71.4 - Abdominal aortic aneurysm, without rupture Is this a current diagnosis for this admission?: Yes Plan: Diffuse disease followed by vascular surgery (2) COPD exacerbation Is this a current diagnosis for this admission?: Yes Plan: 1 laba +1 Nereyda +1 long acting muscarinic agent and inhaled corticosteroid (3) Coronary artery disease Qualifiers: Coronary Disease-Associated Artery/Lesion type: [place] artery [place] vs. transplanted heart: [place] heart Associated angina: without angina Qualified Code(s): I25.10 - Atherosclerotic heart disease of [place] coronary artery without angina pectoris Is this a current diagnosis for this admission?: Yes (4) Gallstone Qualifiers: Cholecystitis presence: without cholecystitis Is this a current diagnosis for this admission?: Yes (5) Hypertension Qualifiers: Hypertension type: essential hypertension Qualified Code(s): I10 - Essential (primary) hypertension Is this a current diagnosis for this admission?: Yes Plan: Stable at this time (6) Pneumonia Qualifiers: Pneumonia type: due to unspecified organism Laterality: right Lung location: upper lobe of lung Qualified Code(s): J18.1 - Lobar pneumonia, unspecified organism Is this a current diagnosis for this admission?: Yes Plan: Awaiting sputum cultures currently on empiric antibiotic therapy (7) Pulmonary nodule Is this a current diagnosis for this admission?: Yes Plan: Per Fleischner criteria patient at increased risk will follow with appropriate intervals by way of CTs of the chest without contrast
[2018-04-22] MEDS ORDERED: AMPICILLIN SODIUM/SULBACTAM NA 2 GM in NORMAL SALINE 100 ML IV SCH (12:00)
[2018-04-22] MEDS ORDERED: TRAMADOL HCL 50 MG TABLET PO PRN (12:29)
[2018-04-22] MEDS ORDERED: DOCUSATE SODIUM 100 MG CAPSULE PO PRN (12:29)
[2018-04-22] MEDS: AMPICILLIN SODIUM/SULBACTAM NA 3 GM in NORMAL SALINE 100 ML IV SCH ×3 (13:04→23:51)
[2018-04-22] MEDS: OXYCODONE-ACETAMINOPHEN 5-325 MG TABLET PO PRN ×2 (13:10→18:40)
[2018-04-22] MEDS: GUAIFENESIN 600 MG TABLET.SA PO SCH ×2 (13:10→21:22)
--- NOTE | 2018-04-22 17:06 | Physician Advisory Note ---
Physician Advisor ProgressNote .: Pursuant to the plan for Gema Cotton, I have reviewed the medical record for this patient. Physician Advisor Statement: Please consider documenting, if you agree: 1. "Pneumonia, suspect likely gram-____ type" (COPD pts are at increased risk for Gram-neg organism PNA - & covering w/Levaquin...) 2. "Acute hyponatremia, suspect due to " (PNA?) Thanks! CK Supporting info for dx PNA: cough, congestion, SOB, reported F&Chills, sputum, hypoxemia 87% on RA, rhonchi per ED dr, CT findings ...
[2018-04-22] MEDS: LANSOPRAZOLE 15 MG TAB.RAP.DR PO SCH (18:38)
--- NOTE | 2018-04-22 18:52 | PDOC CONSULTATION ---
History of Present Illness Admission Date/PCP: 04/21/18 23:22 JOSÉ MIGUEL GUPTA MD Patient complains of: Cough and shortness of breath History of Present Illness: JUNO KERR is a 82 year old female admitted for cough and SOB. CT scan showed early pneumonia,gallstones without cholecystitis. Apparently scheduled for cholecystectomy next week at [facility]. 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 Pulmonary Medical History: Reports: Chronic Obstructive Pulmonary Disease (COPD ) - physician indicated early signs of copd Denies: Asthma, Bronchitis, Pneumonia Neurological Medical History: Denies: Seizures Renal/ Medical History: Denies: End Stage Renal Disease Malignancy Medical History: Reports: Skin Cancer GI Medical History: Reports: Gastroesophageal Reflux Disease Denies: Crohn's Disease, Ulcerative Colitis Musculoskeltal Medical History: Reports: Arthritis Skin Medical History: Denies: Eczema, Psoriasis Psychiatric Medical History: Reports: Depression Traumatic Medical History: Denies: Pneumothorax, Traumatic Brain Injury Hematology: Denies: Anemia, Sickle Cell Disease Infectious Medical History: Denies: Clostridium Difficile Past Surgical History Past Surgical History: Reports: Coronary Stent, Herniorrhaphy, Hysterectomy Denies: Pacemaker Social History Lives with: Family Smoking Status: Former Smoker Frequency of Alcohol Use: None Hx Recreational Drug Use: No Hx Prescription Drug Abuse: No Family History Family History: Reviewed & Not Pertinent Parental Family History Reviewed: Yes Children Family History Reviewed: No Sibling(s) Family History Reviewed.: No Medication/Allergy Home Medications: Alendronate Sodium [Fosamax Inchweekly Inch 35 Mg Tablet] 35 mg PO ARNOLD 04/22/18 Aspirin [Aspirin EC] 81 mg PO DAILY 04/22/18 Atorvastatin Calcium [Lipitor 80 mg Tablet] 80 mg PO QHS 04/22/18 Citalopram Hydrobromide [Celexa 20 mg Tablet] 20 mg PO DAILY 04/22/18 Docusate Sodium [Stool Softener] 100 mg PO DAILYP PRN 04/22/18 Latanoprost [Xalatan 0.005% Oph Soln 2.5 ml] 1 drop OU QHS 04/22/18 Levothyroxine Sodium [Synthroid 0.075 mg Tablet] 0.075 mg PO QAM 04/22/18 Tramadol HCl [Ultram 50 mg Tablet] 50 mg PO BIDP PRN 04/22/18 Zolpidem Tartrate [Ambien 5 mg Tablet] 5 mg PO QPM 04/22/18 Allergies/Adverse Reactions: cephalexin monohydrate [From Keflex] Allergy (Unknown, Verified 04/22/18 14:23) ramipril [From Altace] Allergy (Verified 04/17/18 13:46) Sulfa (Sulfonamide Antibiotics) Allergy (Verified 04/17/18 13:46) Review of Systems Constitutional: PRESENT: other - no fever/chills Eyes: PRESENT: other - no visual/hearing changes Cardiovascular: PRESENT: other - Shortness of Breath Respiratory: PRESENT: cough Gastrointestinal: PRESENT: abdominal pain Genitourinary: PRESENT: other - no dysuria Neurological: PRESENT: other - no seizures Psychiatric: PRESENT: depression Hematologic/Lymphatic: PRESENT: other - no easy bruising Physical Exam Vital Signs: Temp Pulse Resp BP Pulse Ox 97.6 F 71 22 H 114/65 96 04/22/18 15:54 04/22/18 15:54 04/22/18 15:54 04/22/18 15:54 04/22/18 16:02 Intake & Output 04/21/18 04/22/18 04/23/18 06:59 06:59 06:59 Intake Total 0 222 Balance 0 222 Weight 68.5 kg General appearance: PRESENT: thin Head exam: PRESENT: atraumatic Eye exam: PRESENT: conjunctiva pink Mouth exam: PRESENT: moist Neck exam: PRESENT: full ROM Respiratory exam: PRESENT: decreased breath sounds Cardiovascular exam: PRESENT: RRR Pulses: PRESENT: normal radial pulses Vascular exam: PRESENT: normal capillary refill GI/Abdominal exam: PRESENT: soft, tenderness - mild at epigastrium Rectal exam: PRESENT: deferred Extremities exam: PRESENT: other - no swelling Neurological exam: PRESENT: alert, oriented to person, oriented to place, oriented to time, oriented to situation Psychiatric exam: PRESENT: appropriate affect Skin exam: PRESENT: normal color, warm Results Impressions: Chest X-Ray 04/21/18 19:36 IMPRESSION: NO ACUTE RADIOGRAPHIC FINDING IN THE CHEST. Chest CT 04/21/18 22:57 IMPRESSION: 1. Patchy groundglass opacities involving the right lower and left lower lobes concerning for developing pneumonic process. 2. Scattered tree-in-bud opacification identified bilaterally suggesting inflammatory or infectious bronchiolitis. 3. Mild bronchial wall thickening. This suggests chronic bronchitis however superimposed acute bronchitis could produce a similar appearance. 4. There are 2 solid indeterminate pulmonary nodules in the right lower lobe, the largest measuring 8 mm. Based on Fleischner criteria guidelines for high-risk patient follow-up CT of the chest in 6 months recommended. 5. Coronary artery atherosclerosis. 6. Stent graft treatment of the thoracic aortic arch. Ectasia of the ascending thoracic aorta. Continued surveillance in 6 months recommended as well as continued follow-up with vascular specialist. This exam was performed according to our departmental dose-optimization program, which includes automated exposure control, adjustment of the mA and/or kV according to patient size and/or use of iterative reconstruction technique. Abdomen/Pelvis CT 04/22/18 00:00 IMPRESSION: Unruptured infrarenal abdominal aortic aneurysm, 4.5 x 4.4 cm in size. Stones in the gallbladder. Assessment & Plan - Time Time Spent: 30 to 50 Minutes - Plan Summary Plan Summary: No apparent acute cholecystitis but will get HIDA scan tomorrow am to make sure.She does have epigastric pains which may be relaetd to gallbladder disease. AAA at 4.4 cm close to indication for stent graft at 5.0 cm. Suspect normal HIDA scan.
[2018-04-22] MEDS: ZOLPIDEM TARTRATE 5 MG TABLET PO SCH (21:22)
[2018-04-22] MEDS: ATORVASTATIN CALCIUM 80 MG TABLET PO SCH (21:22)
[2018-04-22] MEDS: LEVOFLOXACIN 500 MG/D5W RTU 500 MG/100 ML RTUPB IV SCH (21:23)
[2018-04-22] MEDS: LATANOPROST 0.005% OPH SOLN 2.5 ML OU SCH (21:26)
[2018-04-22] MEDS: ACETYLCYSTEINE 20% SOLN 800 MG/4 ML VIAL.NEB NEB SCH (21:45)
[2018-04-23] MEDS: IPRATROPIUM/ALBUTEROL 0.5-2.5 MG/3 ML AMPUL NEB SCH ×4 (02:42→20:01)
[2018-04-23 05:05] LABS: ABSOLUTE EOSINOPHILS # (AUTO) 0.2 10^3/uL (0.0-0.6); ABSOLUTE LYMPHOCYTES (AUTO) 0.5 10^3/uL (0.5-4.7); ABSOLUTE MONOCYTES (AUTO) 0.7 10^3/uL (0.1-1.4); ABSOLUTE NEUT (AUTO) 4.7 10^3/uL (1.7-8.2); BASOPHILS % (AUTO) 0.3 % (0-2); EOSINOPHILS % (AUTO) 3.3 % (0-6); HEMATOCRIT 34.1 % (36.0-47.0); HEMOGLOBIN 11.4 g/dL (12.0-15.5); LYMPHOCYTES % (AUTO) 8.9 % (13-45); MEAN CORPUSCULAR HEMOGLOBIN 30.3 pg (27.0-33.4); MEAN CORPUSCULAR HGB CONC 33.3 g/dL (32.0-36.0); MEAN CORPUSCULAR VOLUME 91 fl (80-97); MONOCYTES % (AUTO) 11.6 % (3-13); PLATELET COUNT 137 10^3/uL (150-450); RED BLOOD COUNT 3.75 10^6/uL (3.72-5.28); RED CELL DISTRIBUTION WIDTH 13.3 % (11.5-14.0); SEGMENTED NEUTROPHILS % (AUTO) 75.9 % (42-78); TOTAL CELLS COUNTED % (AUTO) 100 %; WHITE BLOOD COUNT 6.2 10^3/uL (4.0-10.5)
[2018-04-23] MEDS: AMPICILLIN SODIUM/SULBACTAM NA 3 GM in NORMAL SALINE 100 ML IV SCH ×4 (05:26→23:41)
[2018-04-23 05:30] LABS: ANION GAP 9 (5-19); BLOOD UREA NITROGEN 13 mg/dL (7-20); CALCIUM 8.5 mg/dL (8.4-10.2); CARBON DIOXIDE 29 mmol/L (22-30); CHLORIDE 103 mmol/L (98-107); GLUCOSE 98 mg/dL (75-110); POTASSIUM 3.9 mmol/L (3.6-5.0); SODIUM 141.1 mmol/L (137-145)
[2018-04-23] MEDS: ACETYLCYSTEINE 20% SOLN 800 MG/4 ML VIAL.NEB NEB SCH ×2 (08:27→20:01)
[2018-04-23] MEDS: LEVOTHYROXINE SODIUM 0.075 MG TABLET PO SCH (09:41)
[2018-04-23] MEDS: LANSOPRAZOLE 15 MG TAB.RAP.DR PO SCH ×2 (09:41→17:18)
--- NOTE | 2018-04-23 10:28 | PDOC PROGRESS REPORT ---
Subjective Progress Note for:: 04/23/18 Subjective:: UNCHANGED Reason For Visit: EXACERBATION OF COPD/PNEUMONIA Physical Exam Vital Signs: Temp Pulse Resp BP Pulse Ox 98.6 F 84 20 112/57 L 96 04/23/18 07:35 04/23/18 08:27 04/23/18 08:27 04/23/18 07:35 04/23/18 08:27 Intake & Output 04/22/18 04/23/18 04/24/18 06:59 06:59 06:59 Intake Total 0 1117 Balance 0 1117 Weight 68.5 kg 69.1 kg General appearance: PRESENT: no acute distress, cooperative, disheveled Head exam: PRESENT: atraumatic, normocephalic Eye exam: PRESENT: conjunctiva pale, EOMI, PERRLA. ABSENT: nystagmus, periorbital swelling, scleral icterus Mouth exam: PRESENT: dry mucosa, neck supple, tongue midline Neck exam: ABSENT: carotid bruit, JVD, lymphadenopathy, thyromegaly, tracheal deviation, tracheostomy Respiratory exam: PRESENT: decreased breath sounds, prolonged expiratory phas, rhonchi, unlabored. ABSENT: retraction, stridor, tachypnea Cardiovascular exam: PRESENT: RRR, +S1, +S2 GI/Abdominal exam: PRESENT: normal bowel sounds, soft Extremities exam: ABSENT: calf tenderness, clubbing Musculoskeletal exam: ABSENT: deformity, dislocation Neurological exam: PRESENT: awake, oriented to person. ABSENT: oriented to place, oriented to time, oriented to situation Psychiatric exam: PRESENT: flat affect Skin exam: PRESENT: dry, warm Results Laboratory Results: 04/23/18 04:28 04/23/18 04:28 04/23/18 04/23/18 04:28 04:28 WBC 6.2 RBC 3.75 Hgb 11.4 L Hct 34.1 L MCV 91 MCH 30.3 MCHC 33.3 RDW 13.3 Plt Count 137 L Seg Neutrophils % 75.9 Lymphocytes % 8.9 L Monocytes % 11.6 Eosinophils % 3.3 Basophils % 0.3 Absolute Neutrophils 4.7 Absolute Lymphocytes 0.5 Absolute Monocytes 0.7 Absolute Eosinophils 0.2 Absolute Basophils 0.0 Sodium 141.1 Potassium 3.9 Chloride 103 Carbon Dioxide 29 Anion Gap 9 BUN 13 Creatinine 0.88 Est GFR ( Amer) > 60 Est GFR (Non-Af Amer) > 60 Glucose 98 Calcium 8.5 Impressions: Chest X-Ray 04/21/18 19:36 IMPRESSION: NO ACUTE RADIOGRAPHIC FINDING IN THE CHEST. Chest CT 04/21/18 22:57 IMPRESSION: 1. Patchy groundglass opacities involving the right lower and left lower lobes concerning for developing pneumonic process. 2. Scattered tree-in-bud opacification identified bilaterally suggesting inflammatory or infectious bronchiolitis. 3. Mild bronchial wall thickening. This suggests chronic bronchitis however superimposed acute bronchitis could produce a similar appearance. 4. There are 2 solid indeterminate pulmonary nodules in the right lower lobe, the largest measuring 8 mm. Based on Fleischner criteria guidelines for high-risk patient follow-up CT of the chest in 6 months recommended. 5. Coronary artery atherosclerosis. 6. Stent graft treatment of the thoracic aortic arch. Ectasia of the ascending thoracic aorta. Continued surveillance in 6 months recommended as well as continued follow-up with vascular specialist. This exam was performed according to our departmental dose-optimization program, which includes automated exposure control, adjustment of the mA and/or kV according to patient size and/or use of iterative reconstruction technique. Abdomen/Pelvis CT 04/22/18 00:00 IMPRESSION: Unruptured infrarenal abdominal aortic aneurysm, 4.5 x 4.4 cm in size. Stones in the gallbladder. Assessment & Plan - Diagnosis (1) Abdominal aortic aneurysm Qualifiers: Presence of rupture: without rupture Qualified Code(s): I71.4 - Abdominal aortic aneurysm, without rupture Is this a current diagnosis for this admission?: Yes Plan: Diffuse disease followed by vascular surgery (2) COPD exacerbation Is this a current diagnosis for this admission?: Yes Plan: UNCHANGED (3) Coronary artery disease Qualifiers: Coronary Disease-Associated Artery/Lesion type: [place] artery [place] vs. transplanted heart: [place] heart Associated angina: without angina Qualified Code(s): I25.10 - Atherosclerotic heart disease of [place] coronary artery without angina pectoris Is this a current diagnosis for this admission?: Yes (4) Gallstone Qualifiers: Cholecystitis presence: without cholecystitis Is this a current diagnosis for this admission?: Yes (5) Hypertension Qualifiers: Hypertension type: essential hypertension Qualified Code(s): I10 - Essential (primary) hypertension Is this a current diagnosis for this admission?: Yes Plan: Stable at this time (6) Pneumonia Qualifiers: Pneumonia type: due to unspecified organism Laterality: right Lung location: upper lobe of lung Qualified Code(s): J18.1 - Lobar pneumonia, unspecified organism Is this a current diagnosis for this admission?: Yes Plan: Awaiting sputum cultures currently on empiric antibiotic therapy (7) Pulmonary nodule Is this a current diagnosis for this admission?: Yes Plan: Per Fleischner criteria patient at increased risk will follow with appropriate intervals by way of CTs of the chest without contrast
--- NOTE | 2018-04-23 12:13 | PDOC PROGRESS REPORT ---
Subjective Progress Note for:: 04/23/18 Subjective:: Patient is currently feeling much better Still having some cough and congestion's No fever No chest pain and no shortness of the breath Patient seen by the general surgery and order the HIDA scan Reason For Visit: EXACERBATION OF COPD/PNEUMONIA Physical Exam Vital Signs: Temp Pulse Resp BP Pulse Ox 98.6 F 84 20 112/57 L 96 04/23/18 07:35 04/23/18 08:27 04/23/18 08:27 04/23/18 07:35 04/23/18 08:27 Intake & Output 04/22/18 04/23/18 04/24/18 06:59 06:59 06:59 Intake Total 0 1117 Balance 0 1117 Weight 68.5 kg 69.1 kg General appearance: PRESENT: no acute distress, well-developed, well-nourished Head exam: PRESENT: atraumatic, normocephalic Eye exam: PRESENT: conjunctiva pink, EOMI, PERRLA. ABSENT: scleral icterus Ear exam: PRESENT: normal external ear exam Mouth exam: PRESENT: moist, tongue midline Neck exam: PRESENT: full ROM. ABSENT: carotid bruit, JVD, lymphadenopathy, thyromegaly Respiratory exam: PRESENT: clear to auscultation candie Cardiovascular exam: PRESENT: RRR. ABSENT: diastolic murmur, rubs, systolic murmur Pulses: PRESENT: normal dorsalis pedis pul, +2 pedal pulses bilateral Vascular exam: PRESENT: normal capillary refill GI/Abdominal exam: PRESENT: normal bowel sounds, soft. ABSENT: distended, guarding, mass, organolmegaly, rebound, tenderness Rectal exam: PRESENT: deferred Neurological exam: PRESENT: alert, awake, oriented to person, oriented to place , oriented to time, oriented to situation, CN II-XII grossly intact. ABSENT: motor sensory deficit Psychiatric exam: PRESENT: appropriate affect, normal mood. ABSENT: homicidal ideation, suicidal ideation Skin exam: PRESENT: dry, intact, warm. ABSENT: cyanosis, rash Results Laboratory Results: 04/23/18 04:28 04/23/18 04:28 04/23/18 04/23/18 04:28 04:28 WBC 6.2 RBC 3.75 Hgb 11.4 L Hct 34.1 L MCV 91 MCH 30.3 MCHC 33.3 RDW 13.3 Plt Count 137 L Seg Neutrophils % 75.9 Lymphocytes % 8.9 L Monocytes % 11.6 Eosinophils % 3.3 Basophils % 0.3 Absolute Neutrophils 4.7 Absolute Lymphocytes 0.5 Absolute Monocytes 0.7 Absolute Eosinophils 0.2 Absolute Basophils 0.0 Sodium 141.1 Potassium 3.9 Chloride 103 Carbon Dioxide 29 Anion Gap 9 BUN 13 Creatinine 0.88 Est GFR ( Amer) > 60 Est GFR (Non-Af Amer) > 60 Glucose 98 Calcium 8.5 Impressions: Chest X-Ray 04/21/18 19:36 IMPRESSION: NO ACUTE RADIOGRAPHIC FINDING IN THE CHEST. Chest CT 04/21/18 22:57 IMPRESSION: 1. Patchy groundglass opacities involving the right lower and left lower lobes concerning for developing pneumonic process. 2. Scattered tree-in-bud opacification identified bilaterally suggesting inflammatory or infectious bronchiolitis. 3. Mild bronchial wall thickening. This suggests chronic bronchitis however superimposed acute bronchitis could produce a similar appearance. 4. There are 2 solid indeterminate pulmonary nodules in the right lower lobe, the largest measuring 8 mm. Based on Fleischner criteria guidelines for high-risk patient follow-up CT of the chest in 6 months recommended. 5. Coronary artery atherosclerosis. 6. Stent graft treatment of the thoracic aortic arch. Ectasia of the ascending thoracic aorta. Continued surveillance in 6 months recommended as well as continued follow-up with vascular specialist. This exam was performed according to our departmental dose-optimization program, which includes automated exposure control, adjustment of the mA and/or kV according to patient size and/or use of iterative reconstruction technique. Abdomen/Pelvis CT 04/22/18 00:00 IMPRESSION: Unruptured infrarenal abdominal aortic aneurysm, 4.5 x 4.4 cm in size. Stones in the gallbladder. Assessment & Plan - Diagnosis (1) Pneumonia Qualifiers: Pneumonia type: due to unspecified organism Laterality: right Lung location: upper lobe of lung Qualified Code(s): J18.1 - Lobar pneumonia, unspecified organism Is this a current diagnosis for this admission?: Yes Plan: IV antibiotic (2) COPD exacerbation Is this a current diagnosis for this admission?: Yes Plan: Continues to DuoNeb nebulizer treatments consult the Dr. Marcial's with the abnormal CT scan (3) Coronary artery disease Qualifiers: Coronary Disease-Associated Artery/Lesion type: [place] artery [place] vs. transplanted heart: [place] heart Associated angina: without angina Qualified Code(s): I25.10 - Atherosclerotic heart disease of [place] coronary artery without angina pectoris Is this a current diagnosis for this admission?: Yes Plan: Patients were continues to monitor (4) Hypertension Qualifiers: Hypertension type: essential hypertension Qualified Code(s): I10 - Essential (primary) hypertension Is this a current diagnosis for this admission?: Yes Plan: Currently stable (5) Abdominal aortic aneurysm Qualifiers: Presence of rupture: without rupture Qualified Code(s): I71.4 - Abdominal aortic aneurysm, without rupture Is this a current diagnosis for this admission?: Yes Plan: Currently all stable (6) Gallstone Qualifiers: Cholecystitis presence: without cholecystitis Is this a current diagnosis for this admission?: Yes Plan: Patient's currently does not have any acute cholecystitis follow with the surgery (7) Hypothyroidism Qualifiers: Hypothyroidism type: unspecified Qualified Code(s): E03.9 - Hypothyroidism , unspecified Is this a current diagnosis for this admission?: Yes Plan: Currently all stable (8) Depression Qualifiers: Depression Type: major depressive disorder Is this a current diagnosis for this admission?: Yes (9) Pulmonary nodule Is this a current diagnosis for this admission?: Yes Plan: Consult the pulmonary - Time Time Spent with patient: 15-24 minutes Medications reviewed and adjusted accordingly: Yes Anticipated discharge: Home Within: Other - Inpatient Certification Medical Necessity: Need Close Monitoring Due to Risk of Patient Decompensation, Need for IV Antibiotics Post Hospital Care: D/C Equipment Cleaner And Tester Documentation - Plan Summary Plan Summary: Continues IV antibioticOther orders
[2018-04-23] MEDS: ASPIRIN 81 MG TABLET, ENT COATED PO SCH (12:38)
[2018-04-23] MEDS: CITALOPRAM HYDROBROMIDE 20 MG TABLET PO SCH (12:38)
[2018-04-23] MEDS: GUAIFENESIN 600 MG TABLET.SA PO SCH ×2 (12:43→22:18)
--- NOTE | 2018-04-23 15:00 | RADIOLOGY REPORT (SQ) ---
EXAM DESCRIPTION: NM HIDA SCAN COMPLETED DATE/TIME: 04/23/2018 12:26 pm REASON FOR STUDY: cholecystitis R50.81 FEVER PRESENTING WITH CONDITIONS CLASSIFIED ELSEWHERE COMPARISON: CT abdomen pelvis 04/22/2018, 03/23/2018 Abdominal ultrasound 04/02/2018 RADIONUCLIDE AND DOSE: DOSAGE RADIONUCLIDE: 5.4 millicuries Tc99m Mebrofenin. DOSAGE MORPHINE: Not required. The route of agent administration: Intravenous TECHNIQUE: Serial imaging right upper quadrant up to 60 minutes following injection of radionuclide. Patient imaged AP and Right Lateral. LIMITATIONS: None. FINDINGS: LIVER: Normal visualization without areas of photopenia. INTRA-HEPATIC BILE DUCTS: Temporal visualization normal. COMMON BILE DUCT: Normal without dilatation or delayed visualization. GALLBLADDER: Normal visualization. OTHER: No other significant finding. IMPRESSION: NORMAL STUDY WITHOUT CYSTIC OR COMMON DUCT OBSTRUCTION. TECHNICAL DOCUMENTATION: JOB ID: [id number] [employer]- All Rights Reserved Reading location - IP/workstation name: [email or web address]
--- NOTE | 2018-04-23 19:19 | PDOC PROGRESS REPORT ---
Subjective Progress Note for:: 04/23/18 Subjective:: no pains Reason For Visit: PNEUMONIA, COPD EXACERBATION Physical Exam Vital Signs: Temp Pulse Resp BP Pulse Ox 99.0 F 76 18 111/59 L 96 04/23/18 15:37 04/23/18 15:37 04/23/18 15:37 04/23/18 15:37 04/23/18 17:12 Intake & Output 04/22/18 04/23/18 04/24/18 06:59 06:59 06:59 Intake Total 0 1117 787 Balance 0 1117 787 Weight 68.5 kg 69.1 kg Exam: abd soft and non tender Results Laboratory Results: 04/23/18 04:28 04/23/18 04:28 04/23/18 04/23/18 04:28 04:28 WBC 6.2 RBC 3.75 Hgb 11.4 L Hct 34.1 L MCV 91 MCH 30.3 MCHC 33.3 RDW 13.3 Plt Count 137 L Seg Neutrophils % 75.9 Lymphocytes % 8.9 L Monocytes % 11.6 Eosinophils % 3.3 Basophils % 0.3 Absolute Neutrophils 4.7 Absolute Lymphocytes 0.5 Absolute Monocytes 0.7 Absolute Eosinophils 0.2 Absolute Basophils 0.0 Sodium 141.1 Potassium 3.9 Chloride 103 Carbon Dioxide 29 Anion Gap 9 BUN 13 Creatinine 0.88 Est GFR ( Amer) > 60 Est GFR (Non-Af Amer) > 60 Glucose 98 Calcium 8.5 Impressions: Chest X-Ray 04/21/18 19:36 IMPRESSION: NO ACUTE RADIOGRAPHIC FINDING IN THE CHEST. Chest CT 04/21/18 22:57 IMPRESSION: 1. Patchy groundglass opacities involving the right lower and left lower lobes concerning for developing pneumonic process. 2. Scattered tree-in-bud opacification identified bilaterally suggesting inflammatory or infectious bronchiolitis. 3. Mild bronchial wall thickening. This suggests chronic bronchitis however superimposed acute bronchitis could produce a similar appearance. 4. There are 2 solid indeterminate pulmonary nodules in the right lower lobe, the largest measuring 8 mm. Based on Fleischner criteria guidelines for high-risk patient follow-up CT of the chest in 6 months recommended. 5. Coronary artery atherosclerosis. 6. Stent graft treatment of the thoracic aortic arch. Ectasia of the ascending thoracic aorta. Continued surveillance in 6 months recommended as well as continued follow-up with vascular specialist. This exam was performed according to our departmental dose-optimization program, which includes automated exposure control, adjustment of the mA and/or kV according to patient size and/or use of iterative reconstruction technique. Abdomen/Pelvis CT 04/22/18 00:00 IMPRESSION: Unruptured infrarenal abdominal aortic aneurysm, 4.5 x 4.4 cm in size. Stones in the gallbladder. Hepatobiliary Scan Nuclear Medicine 04/23/18 08:00 IMPRESSION: NORMAL STUDY WITHOUT CYSTIC OR COMMON DUCT OBSTRUCTION. Assessment & Plan - Time Time Spent with patient: 15-24 minutes - Plan Summary Plan Summary: HIDA scan is normal. No indication for cholecystectomy at this time Will sign off. Patient will follow with own gen surgeon and vascular surgeon.
[2018-04-23] MEDS: LATANOPROST 0.005% OPH SOLN 2.5 ML OU SCH (22:18)
[2018-04-23] MEDS: ZOLPIDEM TARTRATE 5 MG TABLET PO SCH (22:18)
[2018-04-23] MEDS: ATORVASTATIN CALCIUM 80 MG TABLET PO SCH (22:18)
[2018-04-23] MEDS: LEVOFLOXACIN 500 MG/D5W RTU 500 MG/100 ML RTUPB IV SCH (22:18)
[2018-04-24] MEDS: IPRATROPIUM/ALBUTEROL 0.5-2.5 MG/3 ML AMPUL NEB SCH ×4 (02:16→20:06)
[2018-04-24] MEDS: LEVOTHYROXINE SODIUM 0.075 MG TABLET PO SCH (05:47)
[2018-04-24] MEDS: LANSOPRAZOLE 15 MG TAB.RAP.DR PO SCH ×2 (05:47→17:18)
[2018-04-24] MEDS: AMPICILLIN SODIUM/SULBACTAM NA 3 GM in NORMAL SALINE 100 ML IV SCH ×4 (05:47→23:14)
[2018-04-24 06:41] LABS: ANION GAP 10 (5-19); BLOOD UREA NITROGEN 11 mg/dL (7-20); CALCIUM 8.2 mg/dL (8.4-10.2); CARBON DIOXIDE 27 mmol/L (22-30); CHLORIDE 103 mmol/L (98-107); GLUCOSE 102 mg/dL (75-110); POTASSIUM 3.7 mmol/L (3.6-5.0); SODIUM 139.5 mmol/L (137-145)
[2018-04-24] MEDS: ACETYLCYSTEINE 20% SOLN 800 MG/4 ML VIAL.NEB NEB SCH ×2 (08:09→20:06)
--- NOTE | 2018-04-24 08:53 | PDOC PROGRESS REPORT ---
Subjective Progress Note for:: 04/24/18 Subjective:: Patient is currently doing well Patient's denied any chest pain denied any shortness of the breath Since still complaining some cough and congestion's Patients walk with the hallway with the physical therapy and doing well Patient seen by the general surgery and sign off and no need for any gallbladder issue at this point Reason For Visit: PNEUMONIA, COPD EXACERBATION Physical Exam Vital Signs: Temp Pulse Resp BP Pulse Ox 98.5 F 66 18 121/55 L 95 04/24/18 07:45 04/24/18 07:45 04/24/18 07:45 04/24/18 07:45 04/24/18 07:45 Intake & Output 04/23/18 04/24/18 04/25/18 06:59 06:59 06:59 Intake Total 1117 1552 Balance 1117 1552 Weight 69.1 kg 71.1 kg General appearance: PRESENT: no acute distress, well-developed, well-nourished Head exam: PRESENT: atraumatic, normocephalic Eye exam: PRESENT: conjunctiva pink, EOMI, PERRLA. ABSENT: scleral icterus Ear exam: PRESENT: normal external ear exam Mouth exam: PRESENT: moist, tongue midline Neck exam: PRESENT: full ROM. ABSENT: carotid bruit, JVD, lymphadenopathy, thyromegaly Respiratory exam: PRESENT: clear to auscultation candie Cardiovascular exam: PRESENT: RRR. ABSENT: diastolic murmur, rubs, systolic murmur Pulses: PRESENT: normal dorsalis pedis pul, +2 pedal pulses bilateral Vascular exam: PRESENT: normal capillary refill GI/Abdominal exam: PRESENT: normal bowel sounds, soft. ABSENT: distended, guarding, mass, organolmegaly, rebound, tenderness Rectal exam: PRESENT: deferred Neurological exam: PRESENT: alert, awake, oriented to person, oriented to place , oriented to time, oriented to situation, CN II-XII grossly intact. ABSENT: motor sensory deficit Psychiatric exam: PRESENT: appropriate affect, normal mood. ABSENT: homicidal ideation, suicidal ideation Skin exam: PRESENT: dry, intact, warm. ABSENT: cyanosis, rash Results Laboratory Results: 04/23/18 04:28 04/24/18 05:18 04/24/18 05:18 Sodium 139.5 Potassium 3.7 Chloride 103 Carbon Dioxide 27 Anion Gap 10 BUN 11 Creatinine 0.81 Est GFR ( Amer) > 60 Est GFR (Non-Af Amer) > 60 Glucose 102 Calcium 8.2 L Impressions: Chest X-Ray 04/21/18 19:36 IMPRESSION: NO ACUTE RADIOGRAPHIC FINDING IN THE CHEST. Chest CT 04/21/18 22:57 IMPRESSION: 1. Patchy groundglass opacities involving the right lower and left lower lobes concerning for developing pneumonic process. 2. Scattered tree-in-bud opacification identified bilaterally suggesting inflammatory or infectious bronchiolitis. 3. Mild bronchial wall thickening. This suggests chronic bronchitis however superimposed acute bronchitis could produce a similar appearance. 4. There are 2 solid indeterminate pulmonary nodules in the right lower lobe, the largest measuring 8 mm. Based on Fleischner criteria guidelines for high-risk patient follow-up CT of the chest in 6 months recommended. 5. Coronary artery atherosclerosis. 6. Stent graft treatment of the thoracic aortic arch. Ectasia of the ascending thoracic aorta. Continued surveillance in 6 months recommended as well as continued follow-up with vascular specialist. This exam was performed according to our departmental dose-optimization program, which includes automated exposure control, adjustment of the mA and/or kV according to patient size and/or use of iterative reconstruction technique. Abdomen/Pelvis CT 04/22/18 00:00 IMPRESSION: Unruptured infrarenal abdominal aortic aneurysm, 4.5 x 4.4 cm in size. Stones in the gallbladder. Hepatobiliary Scan Nuclear Medicine 04/23/18 08:00 IMPRESSION: NORMAL STUDY WITHOUT CYSTIC OR COMMON DUCT OBSTRUCTION. Assessment & Plan - Diagnosis (1) Pneumonia Qualifiers: Pneumonia type: due to unspecified organism Laterality: right Lung location: upper lobe of lung Qualified Code(s): J18.1 - Lobar pneumonia, unspecified organism Is this a current diagnosis for this admission?: Yes Plan: IV antibiotic (2) COPD exacerbation Is this a current diagnosis for this admission?: Yes Plan: Continues to DuoNeb nebulizer treatments consult the Dr. Marcial's with the abnormal CT scan (3) Coronary artery disease Qualifiers: Coronary Disease-Associated Artery/Lesion type: [place] artery [place] vs. transplanted heart: [place] heart Associated angina: without angina Qualified Code(s): I25.10 - Atherosclerotic heart disease of [place] coronary artery without angina pectoris Is this a current diagnosis for this admission?: Yes Plan: Patients were continues to monitor (4) Hypertension Qualifiers: Hypertension type: essential hypertension Qualified Code(s): I10 - Essential (primary) hypertension Is this a current diagnosis for this admission?: Yes Plan: Currently stable (5) Abdominal aortic aneurysm Qualifiers: Presence of rupture: without rupture Qualified Code(s): I71.4 - Abdominal aortic aneurysm, without rupture Is this a current diagnosis for this admission?: Yes Plan: Currently all stable (6) Gallstone Qualifiers: Cholecystitis presence: without cholecystitis Is this a current diagnosis for this admission?: Yes Plan: Currently all stable (7) Hypothyroidism Qualifiers: Hypothyroidism type: unspecified Qualified Code(s): E03.9 - Hypothyroidism , unspecified Is this a current diagnosis for this admission?: Yes Plan: Currently all stable (8) Depression Qualifiers: Depression Type: major depressive disorder Is this a current diagnosis for this admission?: Yes (9) Pulmonary nodule Is this a current diagnosis for this admission?: Yes - Time Time Spent with patient: 15-24 minutes Anticipated discharge: Home Within: within 24 hours - Inpatient Certification Medical Necessity: Need Close Monitoring Due to Risk of Patient Decompensation, Need for IV Antibiotics Post Hospital Care: D/C Emergency Detail Driver Documentation - Plan Summary Plan Summary: Continues IV antibiotic
[2018-04-24] MEDS: CITALOPRAM HYDROBROMIDE 20 MG TABLET PO SCH (09:08)
[2018-04-24] MEDS: ASPIRIN 81 MG TABLET, ENT COATED PO SCH (09:08)
[2018-04-24] MEDS: GUAIFENESIN 600 MG TABLET.SA PO SCH ×2 (09:08→22:09)
--- NOTE | 2018-04-24 11:10 | RADIOLOGY REPORT (SQ) ---
EXAM DESCRIPTION: CHEST 2 VIEWS COMPLETED DATE/TIME: 04/24/2018 10:54 am REASON FOR STUDY: pnemonia COMPARISON: CT chest 04/22/2018, two-view chest 04/17/2018 EXAM PARAMETERS: NUMBER OF VIEWS: two views TECHNIQUE: Digital Frontal and Lateral radiographic views of the chest acquired. RADIATION DOSE: NA LIMITATIONS: none FINDINGS: LUNGS AND PLEURA: Stable chronic biapical pleural-parenchymal scarring. No fluffy acute i nfiltrates. No pleural effusion. No pneumothorax. MEDIASTINUM AND HILAR STRUCTURES: No masses or contour abnormalities. HEART AND VASCULAR STRUCTURES: No cardiomegaly. Stable thoracic aortic stent graft at the level of t he great vessel origins. Faintly radiopaque left proximal common carotid stent unchanged. BONES: Osteopenic. HARDWARE: None in the chest. OTHER: No other significant finding. IMPRESSION: No acute changes TECHNICAL DOCUMENTATION: JOB ID: [id number] [employer]- All Rights Reserved Reading location - IP/workstation name: [email or web address]
[2018-04-24] MEDS: ZOLPIDEM TARTRATE 5 MG TABLET PO SCH (22:09)
[2018-04-24] MEDS: ATORVASTATIN CALCIUM 80 MG TABLET PO SCH (22:10)
[2018-04-24] MEDS: LEVOFLOXACIN 500 MG/D5W RTU 500 MG/100 ML RTUPB IV SCH (22:10)
[2018-04-24] MEDS: LATANOPROST 0.005% OPH SOLN 2.5 ML OU SCH (22:11)
[2018-04-25] MEDS: IPRATROPIUM/ALBUTEROL 0.5-2.5 MG/3 ML AMPUL NEB SCH ×4 (02:03→20:14)
[2018-04-25 05:10] LABS: ABSOLUTE EOSINOPHILS # (AUTO) 0.3 10^3/uL (0.0-0.6); ABSOLUTE LYMPHOCYTES (AUTO) 0.6 10^3/uL (0.5-4.7); ABSOLUTE MONOCYTES (AUTO) 0.5 10^3/uL (0.1-1.4); ABSOLUTE NEUT (AUTO) 4.9 10^3/uL (1.7-8.2); BASOPHILS % (AUTO) 0.8 % (0-2); EOSINOPHILS % (AUTO) 4.2 % (0-6); HEMOGLOBIN 10.8 g/dL (12.0-15.5); LYMPHOCYTES % (AUTO) 10.1 % (13-45); MEAN CORPUSCULAR HEMOGLOBIN 30.5 pg (27.0-33.4); MEAN CORPUSCULAR HGB CONC 33.8 g/dL (32.0-36.0); MEAN CORPUSCULAR VOLUME 90 fl (80-97); MONOCYTES % (AUTO) 8.6 % (3-13); PLATELET COUNT 157 10^3/uL (150-450); RED BLOOD COUNT 3.54 10^6/uL (3.72-5.28); RED CELL DISTRIBUTION WIDTH 13.5 % (11.5-14.0); SEGMENTED NEUTROPHILS % (AUTO) 76.3 % (42-78); TOTAL CELLS COUNTED % (AUTO) 100 %; WHITE BLOOD COUNT 6.4 10^3/uL (4.0-10.5)
[2018-04-25] MEDS: AMPICILLIN SODIUM/SULBACTAM NA 3 GM in NORMAL SALINE 100 ML IV SCH (05:59)
[2018-04-25] MEDS: LEVOTHYROXINE SODIUM 0.075 MG TABLET PO SCH (05:59)
[2018-04-25] MEDS: LANSOPRAZOLE 15 MG TAB.RAP.DR PO SCH ×2 (05:59→17:50)
[2018-04-25 07:23] LABS: ANION GAP 6 (5-19); BLOOD UREA NITROGEN 10 mg/dL (7-20); CALCIUM 8.2 mg/dL (8.4-10.2); CARBON DIOXIDE 28 mmol/L (22-30); CHLORIDE 105 mmol/L (98-107); GLUCOSE 104 mg/dL (75-110); POTASSIUM 3.5 mmol/L (3.6-5.0); SODIUM 138.5 mmol/L (137-145)
[2018-04-25] MEDS: ACETYLCYSTEINE 20% SOLN 800 MG/4 ML VIAL.NEB NEB SCH ×2 (08:24→20:15)
[2018-04-25] MEDS: ASPIRIN 81 MG TABLET, ENT COATED PO SCH (09:59)
[2018-04-25] MEDS: GUAIFENESIN 600 MG TABLET.SA PO SCH ×2 (09:59→21:46)
[2018-04-25] MEDS: CITALOPRAM HYDROBROMIDE 20 MG TABLET PO SCH (10:00)
--- NOTE | 2018-04-25 10:44 | PDOC PROGRESS REPORT ---
Subjective Progress Note for:: 04/25/18 Subjective:: Patient is currently doing well Patient's denied any chest pain denied any shortness of the breath No fever Reason For Visit: PNEUMONIA, COPD EXACERBATION Physical Exam Vital Signs: Temp Pulse Resp BP Pulse Ox 99.1 F 66 20 110/59 L 95 04/25/18 04:20 04/25/18 07:00 04/25/18 04:20 04/25/18 04:20 04/25/18 04:20 Intake & Output 04/24/18 04/25/18 04/26/18 06:59 06:59 06:59 Intake Total 1552 1390 Balance 1552 1390 Weight 71.1 kg 71.8 kg General appearance: PRESENT: no acute distress, well-developed, well-nourished Head exam: PRESENT: atraumatic, normocephalic Eye exam: PRESENT: conjunctiva pink, EOMI, PERRLA. ABSENT: scleral icterus Ear exam: PRESENT: normal external ear exam Mouth exam: PRESENT: moist, tongue midline Neck exam: PRESENT: full ROM. ABSENT: carotid bruit, JVD, lymphadenopathy, thyromegaly Respiratory exam: PRESENT: clear to auscultation candie Cardiovascular exam: PRESENT: RRR. ABSENT: diastolic murmur, rubs, systolic murmur Pulses: PRESENT: normal dorsalis pedis pul, +2 pedal pulses bilateral Vascular exam: PRESENT: normal capillary refill GI/Abdominal exam: PRESENT: normal bowel sounds, soft. ABSENT: distended, guarding, mass, organolmegaly, rebound, tenderness Rectal exam: PRESENT: deferred Extremities exam: ABSENT: pedal edema Musculoskeletal exam: PRESENT: ambulatory Neurological exam: PRESENT: alert, awake, oriented to person, oriented to place , oriented to time, oriented to situation, CN II-XII grossly intact. ABSENT: motor sensory deficit Psychiatric exam: PRESENT: appropriate affect, normal mood. ABSENT: homicidal ideation, suicidal ideation Skin exam: PRESENT: dry, intact, warm. ABSENT: cyanosis, rash Results Laboratory Results: 04/25/18 04:52 04/25/18 06:56 04/25/18 04/25/18 04/25/18 04:52 04:52 06:56 WBC 6.4 RBC 3.54 L Hgb 10.8 L Hct 32.0 L MCV 90 MCH 30.5 MCHC 33.8 RDW 13.5 Plt Count 157 Seg Neutrophils % 76.3 Lymphocytes % 10.1 L Monocytes % 8.6 Eosinophils % 4.2 Basophils % 0.8 Absolute Neutrophils 4.9 Absolute Lymphocytes 0.6 Absolute Monocytes 0.5 Absolute Eosinophils 0.3 Absolute Basophils 0.0 Sodium Cancelled 138.5 Potassium Cancelled 3.5 L Chloride Cancelled 105 Carbon Dioxide Cancelled 28 Anion Gap Cancelled 6 BUN Cancelled 10 Creatinine Cancelled 0.83 Est GFR ( Amer) Cancelled > 60 Est GFR (Non-Af Amer) Cancelled > 60 Glucose Cancelled 104 Calcium Cancelled 8.2 L 04/22/18 12:15 Sputum Gram Stain - Final 04/22/18 12:15 Sputum Sputum Culture - Final C.albicans/C.dubliniensis Normal Jessica Impressions: Chest CT 04/21/18 22:57 IMPRESSION: 1. Patchy groundglass opacities involving the right lower and left lower lobes concerning for developing pneumonic process. 2. Scattered tree-in-bud opacification identified bilaterally suggesting inflammatory or infectious bronchiolitis. 3. Mild bronchial wall thickening. This suggests chronic bronchitis however superimposed acute bronchitis could produce a similar appearance. 4. There are 2 solid indeterminate pulmonary nodules in the right lower lobe, the largest measuring 8 mm. Based on Fleischner criteria guidelines for high-risk patient follow-up CT of the chest in 6 months recommended. 5. Coronary artery atherosclerosis. 6. Stent graft treatment of the thoracic aortic arch. Ectasia of the ascending thoracic aorta. Continued surveillance in 6 months recommended as well as continued follow-up with vascular specialist. This exam was performed according to our departmental dose-optimization program, which includes automated exposure control, adjustment of the mA and/or kV according to patient size and/or use of iterative reconstruction technique. Abdomen/Pelvis CT 04/22/18 00:00 IMPRESSION: Unruptured infrarenal abdominal aortic aneurysm, 4.5 x 4.4 cm in size. Stones in the gallbladder. Hepatobiliary Scan Nuclear Medicine 04/23/18 08:00 IMPRESSION: NORMAL STUDY WITHOUT CYSTIC OR COMMON DUCT OBSTRUCTION. Chest X-Ray 04/24/18 00:00 IMPRESSION: No acute changes Assessment & Plan - Diagnosis (1) Pneumonia Qualifiers: Pneumonia type: due to unspecified organism Laterality: right Lung location: upper lobe of lung Qualified Code(s): J18.1 - Lobar pneumonia, unspecified organism Is this a current diagnosis for this admission?: Yes Plan: Will switch to the p.o. antibiotic (2) COPD exacerbation Is this a current diagnosis for this admission?: Yes Plan: Continues to DuoNeb nebulizer treatments consult the Dr. Marcial's with the abnormal CT scan (3) Coronary artery disease Qualifiers: Coronary Disease-Associated Artery/Lesion type: [place] artery [place] vs. transplanted heart: [place] heart Associated angina: without angina Qualified Code(s): I25.10 - Atherosclerotic heart disease of [place] coronary artery without angina pectoris Is this a current diagnosis for this admission?: Yes Plan: Patients were continues to monitor (4) Hypertension Qualifiers: Hypertension type: essential hypertension Qualified Code(s): I10 - Essential (primary) hypertension Is this a current diagnosis for this admission?: Yes Plan: Currently stable (5) Abdominal aortic aneurysm Qualifiers: Presence of rupture: without rupture Qualified Code(s): I71.4 - Abdominal aortic aneurysm, without rupture Is this a current diagnosis for this admission?: Yes Plan: Currently all stable (6) Gallstone Qualifiers: Cholecystitis presence: without cholecystitis Is this a current diagnosis for this admission?: Yes Plan: Currently all stable (7) Hypothyroidism Qualifiers: Hypothyroidism type: unspecified Qualified Code(s): E03.9 - Hypothyroidism , unspecified Is this a current diagnosis for this admission?: Yes Plan: Currently all stable (8) Depression Qualifiers: Depression Type: major depressive disorder Is this a current diagnosis for this admission?: Yes (9) Pulmonary nodule Is this a current diagnosis for this admission?: Yes - Time Time Spent with patient: 15-24 minutes Medications reviewed and adjusted accordingly: Yes Anticipated discharge: Home Within: within 24 hours - Inpatient Certification Medical Necessity: Need Close Monitoring Due to Risk of Patient Decompensation Post Hospital Care: D/C Interactive Media Marketing Strategist Documentation - Plan Summary Plan Summary: We will switch the p.o. antibiotic the patient's remain afebrile and doing well possible discharge in the morning discuss with the son on the bedside regarding the patient's current condition
[2018-04-25] MEDS ORDERED: POTASSIUM CHLORIDE 10 MEQ TABLET.SA PO ONE (11:30)
[2018-04-25] MEDS: FLUCONAZOLE 100 MG TABLET PO SCH (13:58)
[2018-04-25] MEDS: ZOLPIDEM TARTRATE 5 MG TABLET PO SCH (21:45)
[2018-04-25] MEDS: ATORVASTATIN CALCIUM 80 MG TABLET PO SCH (21:45)
[2018-04-25] MEDS: LATANOPROST 0.005% OPH SOLN 2.5 ML OU SCH (21:50)
[2018-04-25] MEDS ORDERED: LEVOFLOXACIN 500 MG TABLET PO SCH (22:00)
[2018-04-26] MEDS: IPRATROPIUM/ALBUTEROL 0.5-2.5 MG/3 ML AMPUL NEB SCH ×2 (01:24→08:30)
[2018-04-26] MEDS: LEVOTHYROXINE SODIUM 0.075 MG TABLET PO SCH (05:47)
[2018-04-26] MEDS: LANSOPRAZOLE 15 MG TAB.RAP.DR PO SCH (05:47)
[2018-04-26 06:26] LABS: ABSOLUTE EOSINOPHILS # (AUTO) 0.3 10^3/uL (0.0-0.6); ABSOLUTE LYMPHOCYTES (AUTO) 0.8 10^3/uL (0.5-4.7); ABSOLUTE MONOCYTES (AUTO) 0.5 10^3/uL (0.1-1.4); ABSOLUTE NEUT (AUTO) 5.2 10^3/uL (1.7-8.2); BASOPHILS % (AUTO) 0.5 % (0-2); EOSINOPHILS % (AUTO) 4.2 % (0-6); HEMATOCRIT 31.3 % (36.0-47.0); HEMOGLOBIN 10.4 g/dL (12.0-15.5); LYMPHOCYTES % (AUTO) 11.6 % (13-45); MEAN CORPUSCULAR HEMOGLOBIN 30.4 pg (27.0-33.4); MEAN CORPUSCULAR HGB CONC 33.3 g/dL (32.0-36.0); MEAN CORPUSCULAR VOLUME 91 fl (80-97); MONOCYTES % (AUTO) 7.9 % (3-13); PLATELET COUNT 147 10^3/uL (150-450); RED BLOOD COUNT 3.43 10^6/uL (3.72-5.28); RED CELL DISTRIBUTION WIDTH 13.5 % (11.5-14.0); SEGMENTED NEUTROPHILS % (AUTO) 75.8 % (42-78); TOTAL CELLS COUNTED % (AUTO) 100 %; WHITE BLOOD COUNT 6.8 10^3/uL (4.0-10.5)
[2018-04-26 06:52] LABS: ANION GAP 7 (5-19); BLOOD UREA NITROGEN 10 mg/dL (7-20); CALCIUM 8.4 mg/dL (8.4-10.2); CARBON DIOXIDE 27 mmol/L (22-30); CHLORIDE 104 mmol/L (98-107); GLUCOSE 90 mg/dL (75-110); POTASSIUM 4.2 mmol/L (3.6-5.0); SODIUM 138.1 mmol/L (137-145)
[2018-04-26] MEDS: ACETYLCYSTEINE 20% SOLN 800 MG/4 ML VIAL.NEB NEB SCH (08:30)
[2018-04-26] MEDS: GUAIFENESIN 600 MG TABLET.SA PO SCH (10:13)
[2018-04-26] MEDS: ASPIRIN 81 MG TABLET, ENT COATED PO SCH (10:14)
[2018-04-26] MEDS: CITALOPRAM HYDROBROMIDE 20 MG TABLET PO SCH (10:14)
--- NOTE | 2018-04-26 10:58 | PDOC DISCHARGE SUMMARY ---
General - Admit/Disc Date/PCP Admission Date/Primary Care Provider: 04/21/18 23:22 JOSÉ MIGUEL GUPTA MD Discharge Date: 04/26/18 - Discharge Diagnosis (1) Pneumonia Is this a current diagnosis for this admission?: Yes Summary: Currently all resolving continues to Levaquin (2) COPD exacerbation Is this a current diagnosis for this admission?: Yes Summary: Currently all resolving (3) Coronary artery disease Is this a current diagnosis for this admission?: Yes Summary: Currently all stable (4) Hypertension Is this a current diagnosis for this admission?: Yes Summary: Currently well under control (5) Abdominal aortic aneurysm Is this a current diagnosis for this admission?: Yes Summary: Outpatients vascular surgery (6) Gallstone Is this a current diagnosis for this admission?: Yes Summary: Scheduled for the surgery next week (7) Hypothyroidism Is this a current diagnosis for this admission?: Yes Summary: all stable (8) Depression Is this a current diagnosis for this admission?: Yes (9) Pulmonary nodule Is this a current diagnosis for this admission?: Yes Summary: Follow outpatient Dr. Marcial - Additional Information Discharge Diet: As Tolerated Discharge Activity: Activity As Tolerated Prescriptions: Guaifenesin [Mucinex Sr 600 mg Tablet.sa] 600 mg PO Q12 #60 tablet.sa Ipratropium/Albuterol Sulfate [Duoneb 3 ml Ampul] 3 ml NEB RTQ6 PRN #120 vial.neb PRN Reason: Levofloxacin [Levaquin 500 mg Tablet] 500 mg PO QHS #7 tablet Nebulizer [Nebulizer Machine] 1 each MC ASDIR PRN #1 kit PRN Reason: Umeclidinium Brm/Vilanterol Tr [Anoro Ellipta 62.5-25 Mcg INH] 1 each IH DAILY # 1 blst.w.dev Home Medications: Alendronate Sodium [Fosamax "Weekly" 35 mg Tablet] 35 mg PO ARNOLD 04/22/18 Aspirin [Aspirin EC] 81 mg PO DAILY 04/22/18 Atorvastatin Calcium [Lipitor 80 mg Tablet] 80 mg PO QHS 04/22/18 Citalopram Hydrobromide [Celexa 20 mg Tablet] 20 mg PO DAILY 04/22/18 Docusate Sodium [Stool Softener] 100 mg PO DAILYP PRN 04/22/18 Latanoprost [Xalatan 0.005% Oph Soln 2.5 ml] 1 drop OU QHS 04/22/18 Levothyroxine Sodium [Synthroid 0.075 mg Tablet] 0.075 mg PO QAM 04/22/18 Tramadol HCl [Ultram 50 mg Tablet] 50 mg PO BIDP PRN 04/22/18 Zolpidem Tartrate [Ambien 5 mg Tablet] 5 mg PO QPM 04/22/18 Guaifenesin [Mucinex Sr 600 mg Tablet.sa] 600 mg PO Q12 #60 tablet.sa 04/26/18 Ipratropium/Albuterol Sulfate [Duoneb 3 ml Ampul] 3 ml NEB RTQ6 PRN #120 vial.neb 04/26/18 Levofloxacin [Levaquin 500 mg Tablet] 500 mg PO QHS #7 tablet 04/26/18 Nebulizer [Nebulizer Machine] 1 each MC ASDIR PRN #1 kit 04/26/18 Umeclidinium Brm/Vilanterol Tr [Anoro Ellipta 62.5-25 Mcg INH] 1 each IH DAILY # 1 blst.w.dev 04/26/18 History of Present Illness History of Present Illness: JUNO KERR is a 82 year old female This is a 82-year-old female with a significant history of the 40 of the smoking with a history of the COPD history of the coronary artery disease status post stent placement and a recent physiologist workup is stable and a history of the aneurysm and currently see [place] vascular surgeonAnd initially patients refused for the surgery came to the emergency department 3 days back with a complaint. Cough congestion's and patient was diagnosed with the upper respiratory tract infection and started on amoxicillin patients came to the EMS today with the complaint of shortness of the breath and not feeling well and increasing the cough and a fever Patient's initial workup in the ER with the normal white count and chest x-ray is normal but the patient's clinical condition is more worse than the last time seen in Friday according to the ER physicians and order the CT of the chest was consistent with the possible pneumonia with patient have pulmonary nodules in the aneurysms which is not change Since was giving the Levaquin dose I saw the patient Patient still complaining of a cough and congestion's due to the cough patient was complaining some abdominal wall pain but patient's denied any nausea no vomiting patient's denied any chest pain denied any shortness of the breath now Patient also have a diagnosed with a gallstone and seen by the [facility] and scheduled for the preop this week At this point patient only complaint today is the cough Patient otherwise alert awake oriented 4 Hospital Course Hospital Course: This is a 82-year-old females with the multiple medical problem as above came to the emergency department with a complaint of cough congestion fever and patients diagnosed with a pneumonia and started with the Unasyn and the Levaquin Dr. Marcial was consulted CT scan of the chest was done and a CT of the abdomen and pelvis done with the stable aneurysm Seen by the vascular surgery as a outpatient for the aneurysm Patient also have a gallstone scheduled surgery next week and seen by the surgery here and a HIDA scan was done and suggest no need for surgery and this admissions Otherwise remained afebrile patient's cough is much better chest x-ray is all clearing in patients walk in the hallway without any problems and the p.o. intake is good Discussed with the son and the daughter regarding the patient's current conditions and follow-up all appointment and follow in office in 1 week Physical Exam Vital Signs: Temp Pulse Resp BP Pulse Ox 98.5 F 59 L 19 119/66 95 04/26/18 04:38 04/26/18 07:00 04/26/18 04:38 04/26/18 04:38 04/26/18 04:38 Intake & Output 04/25/18 04/26/18 04/27/18 06:59 06:59 06:59 Intake Total 1390 1509 Balance 1390 1509 Weight 71.8 kg 71.2 kg General appearance: PRESENT: no acute distress, well-developed, well-nourished Head exam: PRESENT: atraumatic, normocephalic Eye exam: PRESENT: conjunctiva pink, EOMI, PERRLA. ABSENT: scleral icterus Ear exam: PRESENT: normal external ear exam Mouth exam: PRESENT: moist, tongue midline Neck exam: PRESENT: full ROM. ABSENT: carotid bruit, JVD, lymphadenopathy, thyromegaly Respiratory exam: PRESENT: clear to auscultation candie Cardiovascular exam: PRESENT: RRR. ABSENT: diastolic murmur, rubs, systolic murmur Pulses: PRESENT: normal dorsalis pedis pul, +2 pedal pulses bilateral Vascular exam: PRESENT: normal capillary refill GI/Abdominal exam: PRESENT: normal bowel sounds, soft. ABSENT: distended, guarding, mass, organolmegaly, rebound, tenderness Rectal exam: PRESENT: deferred Extremities exam: ABSENT: pedal edema Musculoskeletal exam: PRESENT: ambulatory Neurological exam: PRESENT: alert, awake, oriented to person, oriented to place , oriented to time, oriented to situation, CN II-XII grossly intact. ABSENT: motor sensory deficit Psychiatric exam: PRESENT: appropriate affect, normal mood. ABSENT: homicidal ideation, suicidal ideation Skin exam: PRESENT: dry, intact, warm. ABSENT: cyanosis, rash Results Laboratory Results: 04/26/18 05:36 04/26/18 05:36 04/26/18 04/26/18 05:36 05:36 WBC 6.8 RBC 3.43 L Hgb 10.4 L Hct 31.3 L MCV 91 MCH 30.4 MCHC 33.3 RDW 13.5 Plt Count 147 L Seg Neutrophils % 75.8 Lymphocytes % 11.6 L Monocytes % 7.9 Eosinophils % 4.2 Basophils % 0.5 Absolute Neutrophils 5.2 Absolute Lymphocytes 0.8 Absolute Monocytes 0.5 Absolute Eosinophils 0.3 Absolute Basophils 0.0 Sodium 138.1 Potassium 4.2 Chloride 104 Carbon Dioxide 27 Anion Gap 7 BUN 10 Creatinine 0.86 Est GFR ( Amer) > 60 Est GFR (Non-Af Amer) > 60 Glucose 90 Calcium 8.4 Impressions: Chest CT 04/21/18 22:57 IMPRESSION: 1. Patchy groundglass opacities involving the right lower and left lower lobes concerning for developing pneumonic process. 2. Scattered tree-in-bud opacification identified bilaterally suggesting inflammatory or infectious bronchiolitis. 3. Mild bronchial wall thickening. This suggests chronic bronchitis however superimposed acute bronchitis could produce a similar appearance. 4. There are 2 solid indeterminate pulmonary nodules in the right lower lobe, the largest measuring 8 mm. Based on Fleischner criteria guidelines for high-risk patient follow-up CT of the chest in 6 months recommended. 5. Coronary artery atherosclerosis. 6. Stent graft treatment of the thoracic aortic arch. Ectasia of the ascending thoracic aorta. Continued surveillance in 6 months recommended as well as continued follow-up with vascular specialist. This exam was performed according to our departmental dose-optimization program, which includes automated exposure control, adjustment of the mA and/or kV according to patient size and/or use of iterative reconstruction technique. Abdomen/Pelvis CT 04/22/18 00:00 IMPRESSION: Unruptured infrarenal abdominal aortic aneurysm, 4.5 x 4.4 cm in size. Stones in the gallbladder. Hepatobiliary Scan Nuclear Medicine 04/23/18 08:00 IMPRESSION: NORMAL STUDY WITHOUT CYSTIC OR COMMON DUCT OBSTRUCTION. Chest X-Ray 04/24/18 00:00 IMPRESSION: No acute changes Qualifiers - * PATIENT BEING DISCHARGED WITH ANY OF THE FOLLOWING DIAGNOSIS: No VTE patient discharged on overlapping Therapy?: Yes Plan Time Spent: Greater than 30 Minutes - Very extensive discussed with the patient and the daughter regarding the patient's current condition and follow-up outpatients all the appointment
[2018-04-26] MEDS: FLUCONAZOLE 100 MG TABLET PO SCH (11:45)
[2018-04-26 11:51] VITALS: BP 143/80
--- NOTE | 2018-04-26 12:21 | PDOC PROGRESS REPORT ---
Subjective Progress Note for:: 04/24/18 Subjective:: UNCHANGED Reason For Visit: PNEUMONIA, COPD EXACERBATION Physical Exam Vital Signs: Temp Pulse Resp BP Pulse Ox 98.4 F 69 17 155/58 H 98 04/24/18 11:31 04/24/18 11:31 04/24/18 11:31 04/24/18 11:31 04/24/18 11:31 Intake & Output 04/23/18 04/24/18 04/25/18 06:59 06:59 06:59 Intake Total 1117 1552 350 Balance 1117 1552 350 Weight 69.1 kg 71.1 kg General appearance: PRESENT: no acute distress, cooperative, disheveled Head exam: PRESENT: atraumatic, normocephalic Eye exam: PRESENT: conjunctiva pale, EOMI. ABSENT: nystagmus, periorbital swelling, scleral icterus Mouth exam: PRESENT: dry mucosa, neck supple, tongue midline Neck exam: ABSENT: carotid bruit, JVD, lymphadenopathy, thyromegaly, tracheal deviation, tracheostomy Respiratory exam: PRESENT: decreased breath sounds, prolonged expiratory phas, rales, rhonchi, unlabored. ABSENT: retraction, stridor, tachypnea Cardiovascular exam: PRESENT: RRR, +S1, +S2 Pulses: PRESENT: normal radial pulses GI/Abdominal exam: PRESENT: normal bowel sounds, soft Extremities exam: ABSENT: calf tenderness, clubbing, joint swelling Musculoskeletal exam: PRESENT: deformity. ABSENT: dislocation Neurological exam: PRESENT: awake Psychiatric exam: PRESENT: flat affect Skin exam: PRESENT: dry, warm Results Laboratory Results: 04/23/18 04:28 04/24/18 05:18 04/24/18 05:18 Sodium 139.5 Potassium 3.7 Chloride 103 Carbon Dioxide 27 Anion Gap 10 BUN 11 Creatinine 0.81 Est GFR ( Amer) > 60 Est GFR (Non-Af Amer) > 60 Glucose 102 Calcium 8.2 L 04/22/18 12:15 Sputum Gram Stain - Final 04/22/18 12:15 Sputum Sputum Culture - Final C.albicans/C.dubliniensis Normal Jessica Impressions: Chest CT 04/21/18 22:57 IMPRESSION: 1. Patchy groundglass opacities involving the right lower and left lower lobes concerning for developing pneumonic process. 2. Scattered tree-in-bud opacification identified bilaterally suggesting inflammatory or infectious bronchiolitis. 3. Mild bronchial wall thickening. This suggests chronic bronchitis however superimposed acute bronchitis could produce a similar appearance. 4. There are 2 solid indeterminate pulmonary nodules in the right lower lobe, the largest measuring 8 mm. Based on Fleischner criteria guidelines for high-risk patient follow-up CT of the chest in 6 months recommended. 5. Coronary artery atherosclerosis. 6. Stent graft treatment of the thoracic aortic arch. Ectasia of the ascending thoracic aorta. Continued surveillance in 6 months recommended as well as continued follow-up with vascular specialist. This exam was performed according to our departmental dose-optimization program, which includes automated exposure control, adjustment of the mA and/or kV according to patient size and/or use of iterative reconstruction technique. Abdomen/Pelvis CT 04/22/18 00:00 IMPRESSION: Unruptured infrarenal abdominal aortic aneurysm, 4.5 x 4.4 cm in size. Stones in the gallbladder. Hepatobiliary Scan Nuclear Medicine 04/23/18 08:00 IMPRESSION: NORMAL STUDY WITHOUT CYSTIC OR COMMON DUCT OBSTRUCTION. Chest X-Ray 04/24/18 00:00 IMPRESSION: No acute changes Assessment & Plan - Diagnosis (1) Abdominal aortic aneurysm Qualifiers: Presence of rupture: without rupture Qualified Code(s): I71.4 - Abdominal aortic aneurysm, without rupture Is this a current diagnosis for this admission?: Yes Plan: Diffuse disease followed by vascular surgery (2) COPD exacerbation Is this a current diagnosis for this admission?: Yes Plan: improving (3) Coronary artery disease Qualifiers: Coronary Disease-Associated Artery/Lesion type: [place] artery [place] vs. transplanted heart: [place] heart Associated angina: without angina Qualified Code(s): I25.10 - Atherosclerotic heart disease of [place] coronary artery without angina pectoris Is this a current diagnosis for this admission?: Yes (4) Gallstone Qualifiers: Cholecystitis presence: without cholecystitis Is this a current diagnosis for this admission?: Yes (5) Hypertension Qualifiers: Hypertension type: essential hypertension Qualified Code(s): I10 - Essential (primary) hypertension Is this a current diagnosis for this admission?: Yes Plan: Stable at this time (6) Pneumonia Qualifiers: Pneumonia type: due to unspecified organism Laterality: right Lung location: upper lobe of lung Qualified Code(s): J18.1 - Lobar pneumonia, unspecified organism Is this a current diagnosis for this admission?: Yes Plan: Awaiting sputum cultures currently on empiric antibiotic therapy (7) Pulmonary nodule Is this a current diagnosis for this admission?: Yes Plan: Per Fleischner criteria patient at increased risk will follow with appropriate intervals by way of CTs of the chest without contrast
== END 2018-04-26 12:16 | disposition home or self-care (01) | DRG 194 ==
LOC: ER 19:14 → EH 23:22 → OBSVTOIN 23:22 → 3W 04-22 02:10
PROVIDERS: ADMIT Family Medicine; ATTEND Family Medicine
PROC: 3E0F73Z Introduction of Anti-inflammatory into Respiratory Tract, Via Natural or Artificial Opening (ICD-10-PCS; principal; 2018-04-22)
DX: J18.1 Lobar pneumonia, unspecified organism (principal); J44.1 Chronic obstructive pulmonary disease with (acute) exacerbation; J44.0 Chronic obstructive pulmonary disease with (acute) lower respiratory infection; I25.10 Atherosclerotic heart disease of native coronary artery without angina pectoris; I11.0 Hypertensive heart disease with heart failure; I71.4 Abdominal aortic aneurysm, without rupture; K80.80 Other cholelithiasis without obstruction; E03.9 Hypothyroidism, unspecified; F32.9 Major depressive disorder, single episode, unspecified; R91.1 Solitary pulmonary nodule; K21.9 Gastro-esophageal reflux disease without esophagitis; E78.00 Pure hypercholesterolemia, unspecified; M19.90 Unspecified osteoarthritis, unspecified site; I25.2 Old myocardial infarction; Z79.899 Other long term (current) drug therapy; Z87.891 Personal history of nicotine dependence; Z95.5 Presence of coronary angioplasty implant and graft; Z86.718 Personal history of other venous thrombosis and embolism; Z85.828 Personal history of other malignant neoplasm of skin; Z90.710 Acquired absence of both cervix and uterus; Z79.82 Long term (current) use of aspirin; Z88.1 Allergy status to other antibiotic agents; Z88.2 Allergy status to sulfonamides; Z88.8 Allergy status to other drugs, medicaments and biological substances
CPT/HCPCS: 36415; 51701; 71046; 71250; 74176; 78226; 80048; 80053; 81001; 82803; 82962; 83605; 83690; 84484; 85025; 85610; 87040; 87070; 87086; 87205; 93005; 93010; 94640; 94667; 94668; 96361; 96374; 99285; A9537; G8978-GP; G8979-GP; J0295; J1956; J3490; J7030; J7040; J7620; Q9969

== ENCOUNTER 2018-06-18 06:19 | Day surgery (SDC) | payer MEDICARE, MEDICAID ==
[2018-06-11 10:48] LABS: HEMATOCRIT 35.6 % (36.0-47.0); HEMOGLOBIN 11.9 g/dL (12.0-15.5); MEAN CORPUSCULAR HEMOGLOBIN 30.9 pg (27.0-33.4); MEAN CORPUSCULAR HGB CONC 33.5 g/dL (32.0-36.0); MEAN CORPUSCULAR VOLUME 92 fl (80-97); PLATELET COUNT 131 10^3/uL (150-450); RED BLOOD COUNT 3.87 10^6/uL (3.72-5.28); RED CELL DISTRIBUTION WIDTH 14.2 % (11.5-14.0); WHITE BLOOD COUNT 4.7 10^3/uL (4.0-10.5)
[2018-06-11 11:14] LABS: ALANINE AMINOTRANSFERASE 18 U/L (9-52); ALBUMIN 3.3 g/dL (3.5-5.0); ALKALINE PHOSPHATASE 74 U/L (38-126); ANION GAP 9 (5-19); ASPARTATE AMINO TRANSFERASE 29 U/L (14-36); BILIRUBIN,DIRECT 0.3 mg/dL (0.0-0.4); BILIRUBIN,TOTAL 0.6 mg/dL (0.2-1.3); BLOOD UREA NITROGEN 21 mg/dL (7-20); CALCIUM 9.3 mg/dL (8.4-10.2); CARBON DIOXIDE 26 mmol/L (22-30); CHLORIDE 106 mmol/L (98-107); GLUCOSE 99 mg/dL (75-110); POTASSIUM 4.9 mmol/L (3.6-5.0); TOTAL PROTEIN 6.7 g/dL (6.3-8.2)
[~2018-06-18 06:19] MED LIST: ACETAMINOPHEN 325 MG TABLET PO PRN; CEFOXITIN SODIUM 2 GM in DEXTROSE 5%-WATER 100 ML IV PRN; LACTATED RINGERS 1000 ML IV PRN; LIDOCAINE 0.5% INJ-PF (5 MG/ML) 50 ML SDV SUBCUT PRN
[2018-06-18] MEDS ORDERED: BUPIVACAINE HCL 0.25 % INJ/PF (2.5 MG/1 ML) 30 ML VIAL ONE (06:31)
[2018-06-18] MEDS ORDERED: ACETAMINOPHEN 1,000 MG/100 ML RTUPB IV ONE (07:10)
[2018-06-18] MEDS ORDERED: MIDAZOLAM 2 MG/2 ML INJ ONE (07:10)
[2018-06-18] MEDS ORDERED: PROPOFOL INJ 200 MG/20 ML VIAL IV ONE (07:10)
[2018-06-18] MEDS ORDERED: LIDOCAINE 2% INJ-PF (20 MG/ML) 10 ML AMPUL ONE (07:10)
[2018-06-18] MEDS ORDERED: FENTANYL CITRATE INJ/PF 250 MCG/5 ML AMPULE ONE (07:10)
[2018-06-18] MEDS ORDERED: EPHEDRINE SULFATE INJ 50 MG/1 ML AMPULE ONE (07:49)
[2018-06-18] MEDS ORDERED: FENTANYL CITRATE INJ/PF 100 MCG/2 ML AMPUL IV PRN ×3 (07:57)
[2018-06-18] MEDS ORDERED: MEPERIDINE HCL/PF INJ 25 MG/1 ML DISP.SYRIN IV PRN (07:57)
[2018-06-18] MEDS ORDERED: MORPHINE SULFATE 10 MG/ML INJ IV PRN (07:57)
[2018-06-18] MEDS ORDERED: DIPHENHYDRAMINE HCL 50 MG/ML VIAL IV PRN (07:57)
[2018-06-18] MEDS ORDERED: KETOROLAC TROMETHAMINE INJ/PF 30 MG/1 ML SDV ONE (09:06)
--- NOTE | 2018-06-18 09:13 | Discharge Summary ---
Discharge Summary (SDC) - Discharge Final Diagnosis: Symptomatic cholelithiasis Date of Surgery: 06/18/18 Discharge Date: 06/18/18 Condition: Stable Treatment or Instructions: Okay to shower on Friday. wash incisions with soap and water. Ultram for pain. No tub baths or swimming 2 weeks. No lifting more than 10 pounds 2 weeks. Referrals: JOSÉ MIGUEL GUPTA MD [Primary Care Provider] - Discharge Diet: As Tolerated Respiratory Treatments at Home: Deep Breathing/Coughing, Incentive Spirometer Discharge Activity: No Lifting Over 10 Pounds Home Care Assistance: None Needed Report the Following to Your Physician Immediately: Shortness of Breath, Nausea , Vomiting, Increase in Pain, Yellow Skin, Fever over 101 Degrees, Unusual Bleeding, Redness, Swelling
--- NOTE | 2018-06-18 09:19 | Operative Report ---
Nonrecallable Operative Report DATE OF SURGERY: 06/18/18 PREOPERATIVE DIAGNOSIS: Symptomatic cholelithiasis POSTOPERATIVE DIAGNOSIS: Same as above OPERATION: Laparoscopic cholecystectomy SURGEON: ISABELLE WYNN ANESTHESIA: GA TISSUE REMOVED OR ALTERED: Gallbladder COMPLICATIONS: None apparent ESTIMATED BLOOD LOSS: Minimal PROCEDURE: Drains/implants: None. Procedure in detail: After informed consent was obtained, the patient was laid in the supine position in the operating room. The area of the abdomen was prepped and draped in a normal sterile fashion. A 15 blade scalpel was used to create a supraumbilical incision. Dissection was carried to the fascia using blunt dissection. The patient had a previous umbilical hernia mesh placed. Dissection was carried superiorly to the right of the midline in order to avoid the mesh. An incision was created on the abdominal wall away from the hernia mesh. The balloon trocar was inserted and pneumoperitoneum was achieved. Next, 2 5 mm ports were placed in the right upper quadrant under direct laparoscopic visualization. A small amount of adhesions were taken down bluntly. A subxiphoid 5 mm port was placed, also under direct laparoscopic visualization. The gallbladder was then retracted cephalad and laterally. Dissection was begun in the triangle of Calot. The cystic duct and cystic artery were fully visualized and skeletonized, seeing the liver through the triangle. Once the critical view of safety was obtained, the cystic duct and cystic artery were clipped and cut with laparoscopic instruments. The gallbladder was then removed from the liver using Bovie electrocautery. The gallbladder was grasped with a clamp and pulled out through the umbilicus. The camera was reinserted, and the hilum was inspected. The liver was found to be free of any leakage of blood or bile. Once this was confirmed, the 5 mm trochars were removed. The supraumbilical trocar was removed and pneumoperitoneum was relieved. The supraumbilical fascia was closed using 0 Ethibond suture in [id number] fashion. The overlying skin was closed using 4-0 Vicryl Rapide suture in subcuticular fashion. All sponge, instrument, and needle counts were correct 2. Condition: Stable.
[2018-06-18 11:50] VITALS: BP 153/75
[2018-06-18] MEDS ORDERED: ONDANSETRON HCL INJ/PF 4 MG/2 ML SDV ONE (14:05)
[2018-06-18] MEDS ORDERED: DEXAMETHASONE SOD PHOSPHATE INJ 4 MG/1 ML VIAL ONE (14:05)
[2018-06-18] MEDS ORDERED: ROCURONIUM BROMIDE INJ 50 MG/5 ML VIAL IV ONE (14:05)
[2018-06-18] MEDS ORDERED: NEOSTIGMINE METHYLSULFATE 10 MG/10 ML VIAL ONE (14:05)
[2018-06-18] MEDS ORDERED: GLYCOPYRROLATE INJ 0.4 MG/2 ML VIAL ONE (14:05)
[2018-06-18] MEDS ORDERED: PHENYLEPHRINE HCL INJ/PF 10 MG/1 ML SDV ONE (14:05)
== END 2018-06-18 10:40 | disposition home or self-care (01) ==
LOC: OROUT 06:19
PROVIDERS: ATTEND Surgery
DX: K80.12 Calculus of gallbladder with acute and chronic cholecystitis without obstruction (principal); E78.00 Pure hypercholesterolemia, unspecified; E03.9 Hypothyroidism, unspecified; M81.0 Age-related osteoporosis without current pathological fracture; M19.90 Unspecified osteoarthritis, unspecified site; I25.10 Atherosclerotic heart disease of native coronary artery without angina pectoris; I25.2 Old myocardial infarction; Z87.891 Personal history of nicotine dependence; Z79.899 Other long term (current) drug therapy; Z79.82 Long term (current) use of aspirin; Z79.891 Long term (current) use of opiate analgesic; Z88.2 Allergy status to sulfonamides; Z88.8 Allergy status to other drugs, medicaments and biological substances
CPT/HCPCS: 36415; 85027; 80076; 80048; 47562; J3490 ×3; J1100; J0694; J3010; J1885; J2370; J2405; J2704; J0131; 790; J2250

== ENCOUNTER 2018-09-17 17:18 | Emergency (ER) | payer MEDICARE, MEDICAID ==
[2018-09-17] MEDS ORDERED: FENTANYL CITRATE INJ/PF 100 MCG/2 ML AMPUL IV ONE (18:16)
--- NOTE | 2018-09-17 18:20 | ER Document Report ---
ED General - General Chief Complaint: Back Pain Stated Complaint: SOB Time Seen by Provider: 09/17/18 18:06 TRAVEL OUTSIDE OF THE [place] IN LAST 30 DAYS: No - HPI Notes: Patient is a 83-year-old female that presents to the emergency department for chief complaint of right flank pain. Patient has had abdominal pain in her right upper quadrant since May after receiving a cholecystectomy. She states the pain has become more severe in the last week. Yesterday she started having a stabbing right upper back pain. The pain is constant. She states it is worse with movement and relieved with nothing. She denies taking cnvj-dhf-sajezjz pain medication. She reports some associated nausea with no vomiting. She states she also got short of breath when the back pain started yesterday. She denies dysuria, hematuria and chest pain. She does have a AAA and states it is 4 centimeters. She states her main concern is an issue with her aneurysm. She also states she has had 2-3 episodes of diarrhea for the last 2-3 days. She denies recent travel or antibiotics. Past Medical History: AAA Past Surgical History: Left neck aneurysm repair Social History: Denies drugs alcohol and tobacco Family History: Reviewed and noncontributory for presenting illness Allergies: Reviewed, see documented allergy list. REVIEW OF SYSTEMS: CONSTITUTIONAL : No fever No chills No diaphoresis No recent illness EENT: No vision changes No congestion No sore throat CARDIOVASCULAR: No chest pain No palpitations RESPIRATORY: No shortness of breath No cough No difficulty breathing GASTROINTESTINAL: abdominal pain nausea vomiting diarrhea GENITOURINARY: No dysuria No hematuria No difficulty urinating MUSCULOSKELETAL: back pain No leg pain No arm pain SKIN: No rashes No lesions LYMPHATIC: No swollen, enlarged glands. NEUROLOGICAL: No lightheadedness No headache No weakness No paresthesias PSYCHIATRIC: No anxiety No depression PHYSICAL EXAMINATION: Vital signs reviewed, nursing noted reviewed. GENERAL: Well-appearing, well-nourished and in no acute distress. HEAD: Atraumatic, normocephalic. EYES: Eyes appear normal, extraocular movements intact, sclera anicteric, conjunctiva are normal. ENT: nares patent, oropharynx clear without exudates. Moist mucous membranes. NECK: Normal range of motion, supple without lymphadenopathy Back: No midline spinal tenderness or step-off. Right thoracic paraspinal tenderness LUNGS: Breath sounds clear to auscultation bilaterally and equal. No wheezes rales or rhonchi. HEART: Regular rate and rhythm without murmurs ABDOMEN: Soft, mild diffuse tenderness worse in the right upper quadrant, no pulsatile mass appreciated., normoactive bowel sounds. No rebound, guarding, or rigidity. No masses appreciated. EXTREMITIES: Nontender, good range of motion, no pitting or edema. NEUROLOGICAL: No focal neurological deficits. Moves all extremities spontaneously Motor and sensory grossly intact on exam. PSYCH: Normal mood, normal affect. SKIN: Warm, Dry, normal turgor, no rashes or lesions noted on exposed skin - Related Data Allergies/Adverse Reactions: cephalexin monohydrate [From Keflex] Allergy (Unknown, Verified 06/18/18 06:57) ramipril [From Altace] Allergy (Verified 06/18/18 06:57) Sulfa (Sulfonamide Antibiotics) Allergy (Verified 06/18/18 06:57) Past Medical History - Social History Smoking Status: Never Smoker Chew tobacco use (# tins/day): No Drug Abuse: None Family History: Hypertension, Malignancy Patient has suicidal ideation: No Patient has homicidal ideation: No - Past Medical History Cardiac Medical History: Reports: Hx Coronary Artery Disease - CARDIAC STENTS X3 2000, Hx DVT, Hx Heart Attack - 2000, Hx Hypercholesterolemia, Hx Peripheral Vascular Disease - Multiple stents 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 Denies: Hx Crohn's Disease, Hx Ulcerative Colitis Musculoskeletal Medical History: Reports Hx Arthritis Skin Medical History: Denies Hx Eczema, Denies Hx Psoriasis Psychiatric Medical History: Reports: Hx Depression Traumatic Medical History: Denies: Hx Pneumothorax, Hx Traumatic Brain Injury Infectious Medical History: Denies: Hx C-Diff Past Surgical History: Reports: Hx Coronary Stent, Hx Herniorrhaphy, Hx Hysterectomy. Denies: Hx Pacemaker - Immunizations Hx Diphtheria, Pertussis, Tetanus Vaccination: Yes Hx Pneumococcal Vaccination: 11/24/08 Review of Systems - Review of Systems Notes: Dictated Physical Exam - Vital signs Vitals: Temp Resp Pulse Ox 97.9 F 12 100 09/17/18 17:28 09/17/18 17:28 09/17/18 17:28 - Notes Notes: Dictated Course - Re-evaluation Re-evalutation: 09/17/18 18:20 Vitals reviewed. Nursing notes reviewed. Patient given pain medication for symptomatic treatment. 09/17/18 20:14 Patient reevaluated and states she is feeling much better. Her back pain is almost completely resolved. CT scan shows no change in her aortic aneurysms. There is no acute aortic dissection. Patient's lab work shows some mild elevation in creatinine with no electrolyte derangements. She has no leukocytosis or other signs of infection. UA pending. Laboratory 09/17/18 09/17/18 09/17/18 17:30 17:30 17:30 WBC 4.9 RBC 4.20 Hgb 12.8 Hct 38.8 MCV 92 MCH 30.6 MCHC 33.1 RDW 14.0 Plt Count 146 L Seg Neutrophils % 70.8 Lymphocytes % 19.2 Monocytes % 6.3 Eosinophils % 2.9 Basophils % 0.8 Absolute Neutrophils 3.4 Absolute Lymphocytes 0.9 Absolute Monocytes 0.3 Absolute Eosinophils 0.1 Absolute Basophils 0.0 Sodium 140.4 Potassium 4.4 Chloride 100 Carbon Dioxide 32 H Anion Gap 8 BUN 15 Creatinine 1.42 H Est GFR ( Amer) 43 L Est GFR (Non-Af Amer) 35 L Glucose 115 H Calcium 9.7 Total Bilirubin 0.7 Direct Bilirubin 0.3 Neonat Total Bilirubin Not Reportable Neonat Direct Bilirubin Not Reportable Neonat Indirect Bili Not Reportable AST 35 ALT 20 Alkaline Phosphatase 87 Troponin I 0.027 Total Protein 7.6 Albumin 3.8 Abdomen/Pelvis CTA 09/17/18 18:08 IMPRESSION: Abdominal aortic aneurysms that appear stable. There is no dissection. Diverticulosis coli. Chest/Abdomen CTA 09/17/18 18:08 IMPRESSION: Aneurysm of the ascending aorta is stable. Aortic arch stent graft. No evidence of pulmonary emboli. Coronary atherosclerosis. Stable pleural and subpleural nodules. 09/17/18 21:37 Patient reevaluated and is still feeling good. She does not want any further pain medication. Urinalysis shows hematuria with no infection. Patient will follow with her primary care provider in a few days for reevaluation. She was discharged home in stable condition. - Vital Signs Vital signs: Temp Pulse Resp BP Pulse Ox 97.9 F 16 100 09/17/18 17:28 09/17/18 17:49 09/17/18 17:28 - Laboratory Result Diagrams: 09/17/18 17:30 09/17/18 17:30 Laboratory results interpreted by me: 09/17/18 09/17/18 09/17/18 17:30 17:30 18:24 Plt Count 146 L Carbon Dioxide 32 H Creatinine 1.42 H Est GFR ( Amer) 43 L Est GFR (Non-Af Amer) 35 L Glucose 115 H Urine Blood MODERATE H - EKG Interpretation by Me Additional EKG results interpreted by me: 09/17/18 19:48 Interpreted by myself 1931: Normal sinus rhythm, rate 64, left axis, LVH, no ectopy, right bundle branch block, left anterior fascicular block, no ST elevation Discharge - Discharge Clinical Impression: Right flank pain Hematuria Qualifiers: Hematuria type: asymptomatic microscopic Qualified Code(s): R31.21 - Asymptomatic microscopic hematuria Back pain Qualifiers: Back pain location: thoracic back pain Chronicity: acute Back pain laterality: right Qualified Code(s): M54.6 - Pain in thoracic spine Condition: Stable Disposition: HOME, SELF-CARE Instructions: Low Back Pain ([facility]), Hematuria ([facility]), Flank Pain ([facility]) Additional Instructions: Please return to the emergency department if you have any worsening, or concern of your symptoms. Please return to the emergency department if you develop chest pain, difficulty breathing, severe abdominal pain, or ongoing vomiting. Please follow-up with your primary care physician in 2-3 days and any other recommended physicians. If prescribed, take all medications as directed. If you have any questions or concerns do not hesitate to return the emergency department for evaluation. [] Referrals: JOSÉ MIGUEL GPUTA MD [Primary Care Provider] - Follow up in 3-5 days
[2018-09-17 18:21] LABS: ABSOLUTE EOSINOPHILS # (AUTO) 0.1 10^3/uL (0.0-0.6); ABSOLUTE LYMPHOCYTES (AUTO) 0.9 10^3/uL (0.5-4.7); ABSOLUTE MONOCYTES (AUTO) 0.3 10^3/uL (0.1-1.4); ABSOLUTE NEUT (AUTO) 3.4 10^3/uL (1.7-8.2); BASOPHILS % (AUTO) 0.8 % (0-2); EOSINOPHILS % (AUTO) 2.9 % (0-6); HEMATOCRIT 38.8 % (36.0-47.0); HEMOGLOBIN 12.8 g/dL (12.0-15.5); LYMPHOCYTES % (AUTO) 19.2 % (13-45); MEAN CORPUSCULAR HEMOGLOBIN 30.6 pg (27.0-33.4); MEAN CORPUSCULAR HGB CONC 33.1 g/dL (32.0-36.0); MEAN CORPUSCULAR VOLUME 92 fl (80-97); MONOCYTES % (AUTO) 6.3 % (3-13); PLATELET COUNT 146 10^3/uL (150-450); SEGMENTED NEUTROPHILS % (AUTO) 70.8 % (42-78); TOTAL CELLS COUNTED % (AUTO) 100 %; WHITE BLOOD COUNT 4.9 10^3/uL (4.0-10.5)
[2018-09-17 18:27] LABS: ALANINE AMINOTRANSFERASE 20 U/L (9-52); ALBUMIN 3.8 g/dL (3.5-5.0); ALKALINE PHOSPHATASE 87 U/L (38-126); ANION GAP 8 (5-19); ASPARTATE AMINO TRANSFERASE 35 U/L (14-36); BILIRUBIN,DIRECT 0.3 mg/dL (0.0-0.4); BILIRUBIN,TOTAL 0.7 mg/dL (0.2-1.3); BLOOD UREA NITROGEN 15 mg/dL (7-20); CALCIUM 9.7 mg/dL (8.4-10.2); CARBON DIOXIDE 32 mmol/L (22-30); CHLORIDE 100 mmol/L (98-107); GLUCOSE 115 mg/dL (75-110); POTASSIUM 4.4 mmol/L (3.6-5.0); SODIUM 140.4 mmol/L (137-145); TOTAL PROTEIN 7.6 g/dL (6.3-8.2)
--- NOTE | 2018-09-17 19:15 | RADIOLOGY REPORT (SQ) ---
EXAM DESCRIPTION: CTA CHEST COMPLETED DATE/TIME: 09/17/2018 6:51 pm REASON FOR STUDY: Dissection COMPARISON: 04/22/2018 TECHNIQUE: CT scan of the chest performed using helical scanning technique with dynamic intravenous contrast injection. Images reviewed with lung, soft tissue and bone windows. Reconstructed coronal and sagittal MPR images reviewed. Additional 3 dimensional post-processing performed to develop Maximal Intensity Projection images (OR P). All images stored on PACS. All CT scanners at this facility use dose modulation, iterative reconstruction, and/or weight based d osing when appropriate to reduce radiation dose to as low as reasonably achievable (ALARA). [facility]: Dose Right [facility]: CareDose [facility]: Dose Right [facility]: Teradose 4D [facility]: [employer] CONTRAST TYPE AND DOSE: contrast/concentration: Isovue mg/ml; Total Contrast Delivered: 100.0 ml; T otal Saline Delivered: 65.0 ml Contrast bolus optimized for the pulmonary arteries. Not diagnostic for the aorta. RENAL FUNCTION: Testing waived by the emergency room physician. RADIATION DOSE: . LIMITATIONS: None. FINDINGS: LUNGS AND PLEURA: No infiltrate or effusion. 6 mm subpleural nodule on the left on image 74. There are couple small stable pleural densities in the medial right base. AORTA AND GREAT VESSELS: Aneurysmal dilatation of the ascending aorta that measures 45.3 mm on image 58 series 3. There is a stent graft in the aortic arch. There is small calcified outpouching at the level of the arch on the left that may represent a small walled-off pseudoaneurysm. This is stable. No aortic dissection in the chest. HEART: No pericardial effusion. Moderate to marked coronary artery calcifications. PULMONARY ARTERIES: No emboli visualized in the main pulmonary arteries or the segmental branches. HILAR AND MEDIASTINAL STRUCTURES: No identified masses or abnormal nodes. HARDWARE: Aortic arch stent graft. UPPER ABDOMEN: See separate report of the CT of the abdomen. THYROID AND OTHER SOFT TISSUES: No masses. No adenopathy. BONES: No acute or significant finding. 3D MIPS: Confirm above findings. OTHER: No other significant finding. IMPRESSION: Aneurysm of the ascending aorta is stable. Aortic arch stent graft. No evidence of pul monary emboli. Coronary atherosclerosis. Stable pleural and subpleural nodules. COMMENT: Quality ID # [id number]: Final reports with documentation of one or more dose reduction techniques (e.g., Automated exposure control, adjustment of the mA and/or kV according to patient size, use of iterative reconstruction technique) TECHNICAL DOCUMENTATION: JOB ID: [id number] [employer]- All Rights Reserved Reading location - IP/workstation name: [email or web address]
--- NOTE | 2018-09-17 19:28 | RADIOLOGY REPORT (SQ) ---
EXAM DESCRIPTION: CTA ABDOMEN/PELVIS W WO COMPLETED DATE/TIME: 09/17/2018 6:51 pm REASON FOR STUDY: Dissection COMPARISON: 04/22/2018 TECHNIQUE: CT scan of the abdominal aorta extending to the iliac bifurcation performed with intraven ous contrast using helical scanning technique with dynamic intravenous contrast injection. Images rev iewed with lung, soft tissue, and bone windows. Reconstructed coronal and sagittal MPR images reviewe d. All images stored on PACS. Advanced 3D imaging as volume rendering, MIPS, SSD performed? yes All CT scanners at this facility use dose modulation, iterative reconstruction, and/or weight based d osing when appropriate to reduce radiation dose to as low as reasonably achievable (ALARA). [facility]: Dose Right [facility]: CareDose [facility]: Dose Right [facility]: Teradose 4D [facility]: [employer] CONTRAST TYPE AND DOSE: See report for CT of the chest. RENAL FUNCTION: Testing waived by the emergency room physician. LIMITATIONS: None. FINDINGS: AORTA AND VESSELS: There is a 2 phase infrarenal abdominal aortic aneurysm. More cephalad component measures 44.3 mm in AP diameter on image 137 series 3. The more caudal component measures 43.6 mm in oblique AP diameter on image 157 series 3. These findings are stable. There is mural th rombus in the inferior component. There is no evidence of dissection. Celiac, SMA, and renal arteri es are patent. LUNG BASES: See separate report for CTA of the chest. LIVER: Normal size. No masses or dilated ducts. SPLEEN: Normal size. No focal lesions. PANCREAS: No masses. No significant calcifications. No adjacent inflammation or peripancreatic fluid collections. Pancreatic duct not dilated. GALLBLADDER: Surgically absent. ADRENAL GLANDS: No significant masses or asymmetry. RIGHT KIDNEY AND URETER: No mass, calculi or urinary tract obstruction. LEFT KIDNEY AND URETER: No mass, calculi or urinary tract obstruction. RETROPERITONEUM: No retroperitoneal adenopathy, hemorrhage or masses. BOWEL AND PERITONEAL CAVITY: Diverticulosis is present. No acute inflammatory changes are seen. No bowel mass is appreciated. APPENDIX: Normal. ABDOMINAL WALL: No masses. No hernias. BONY STRUCTURES: No significant or acute findings. 3-D IMAGING: Confirms the above findings. OTHER: No other significant finding. IMPRESSION: Abdominal aortic aneurysms that appear stable. There is no dissection. Diverticulosis coli. TECHNICAL DOCUMENTATION: JOB ID: [id number] Quality ID # [id number]: Final reports with documentation of one or more dose reduction techniques (e.g., Au tomated exposure control, adjustment of the mA and/or kV according to patient size, use of iterative reconstruction technique) 2010 [employer]- All Rights Reserved Reading location - IP/workstation name: [email or web address]
[2018-09-17 20:30] LABS: APPEARANCE,URINE CLEAR; BILIRUBIN,URINE NEGATIVE (NEGATIVE); COLOR,URINE YELLOW; GLUCOSE, URINE NEGATIVE (NEGATIVE); KETONES,URINE NEGATIVE (NEGATIVE); LEUKOCYTE ESTERASE,URINE NEGATIVE (NEGATIVE); NITRITE,URINE NEGATIVE (NEGATIVE); PROTEIN,URINE NEGATIVE (NEGATIVE); URINE SPECIFIC GRAVITY 1.008; UROBILINOGEN,URINE NEGATIVE mg/dL (<2.0)
--- NOTE | 2018-09-17 22:00 | EKG REPORT ---
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
[2018-09-17 22:26] VITALS: BP 145/77
== END 2018-09-17 22:20 | disposition home or self-care (01) ==
LOC: ER 17:18
DX: R31.21 Asymptomatic microscopic hematuria (principal); M54.6 Pain in thoracic spine; R06.02 Shortness of breath; R10.11 Right upper quadrant pain; Z88.2 Allergy status to sulfonamides; Z88.1 Allergy status to other antibiotic agents; I25.10 Atherosclerotic heart disease of native coronary artery without angina pectoris; Z95.5 Presence of coronary angioplasty implant and graft; E78.00 Pure hypercholesterolemia, unspecified; I25.2 Old myocardial infarction; J44.9 Chronic obstructive pulmonary disease, unspecified; Z85.828 Personal history of other malignant neoplasm of skin; Z90.710 Acquired absence of both cervix and uterus
CPT/HCPCS: 93005; 99284; 96374; 36415; 85025; 80053; 81001; 84484; 71275; 74174; 93010; J3010

== ENCOUNTER → 2019-05-10 | Outpatient (CLI) | payer MEDICARE, MEDICAID ==
--- NOTE | 2019-05-10 20:26 | XCELERA REPORT ---
[address] [place] [facility] [address] Lower Extremity Venous Evaluation Procedure: Color flow and duplex imaging of the veins of the left lower extremity as well as the right Common Femoral vein. Right Sided Venous Evaluation The right common femoral vein is fully compressible. Spontaneous and phasic flow is present in the right common femoral vein. Left Sided Venous Evaluation Normal vessel filling wall to wall, compression and augmentation as well as Colour flow down to the infrageniculate veins. Interpretation Summary No duplex evidence of DVT or obstruction in the left lower extremity nor in the right Common Femoral vein. Name: JUNO KERR Age: 83 yrs Gender: Female : 1935 Patient Status: Outpatient Patient Location: Study Date: 05/10/2019 02:17 PM Reason For Study: LLE PAIN Ordering Physician: TOM PHILIP Performed By: Kameron Levine : TOM PHILIP > Curly Ingram
== END ==
LOC: SP 13:52
PROVIDERS: ATTEND Physician Assistant
DX: M79.605 Pain in left leg (principal)
CPT/HCPCS: 93971